=== PATIENT | female | born 1945 | race African-American/Black ===

== ENCOUNTER 2018-04-25 09:12 | Inpatient (IN) ==
[2018-04-25 10:17] LABS: Basophils % 0.6 % (0.0-0.8); Eosinophils # 0.1 10*3/uL (0.0-0.87); Eosinophils % 1.6 % (0.00-10.9); Hematocrit 42.4 VOL% (35.7-47.0); Hemoglobin 13.3 GM/DL (12.0-16.0); Immature Granulocytes % 0.5 %; Immature Granulocytes Absolute 0.03 #; Lymphocytes # 1.3 10*3/uL (1.4-4.0); Mean Corpuscular HGB Conc 31.4 GM/DL (32-36); Mean Corpuscular Hemoglobin 30 PG (27-34); Mean Corpuscular Volume 95.3 FL (87-102); Mean Platelet Volume 10.7 FL (9.6-12.0); Monocytes # 0.7 10*3/uL (0.11-0.8); Monocytes % 10.5 % (1.7-12.7); Neutrophils # 4.3 10*3/uL (1.4-7.4); Neutrophils % 66.8 % (38.7-73.9); Platelet Count 157 T/CUMM (130-400); Red Blood Count 4.45 MC/CUMM (3.8-5.5); Red Cell Distribution Width 17.6 % (9.3-17.3); White Blood Count 6.5 T/CUMM (4-12)
[2018-04-25 10:39] LABS: Albumin 3.7 G/DL (3.4-5.0); Bilirubin,Total 2.5 MG/DL (0.2-1.0); Calcium 9.4 MG/DL (8.5-10.1); Osmolality,Calculated 281.7 MOS/KG (273-304); Potassium 4.9 MMOL/L (3.5-5.1); Total Protein 9.4 G/DL (6.4-8.3)
[2018-04-25] MEDS ORDERED: FUROSEMIDE 40 MG/4 ML VIAL IV STA (11:45)
[2018-04-25 12:03] LABS: ABG Base Excess -1.4 MMOL/L (-2.5-2.5); ABG Oxygen Saturation 95.7 % (95-100); ABG PCO2 42.6 MM HG (35-48); ABG PH 7.368 (7.35-7.45); ABG PO2 82.1 MM HG (80-95); ABG TCO2 25.3 MMOL/L (23-27)
[2018-04-25 13:31] LABS: Apearance,Urine Slightly Hazy (Clear); Bilirubin,Urine Negative (Negative); Blood, Urine Negative (Negative); Glucose,Urine (UA) Negative (Negative); Hyaline Casts,Urine 9 /LPF (0-3); Ketones,Urine Negative (Negative); Mucus,Urine Occasional /LPF (Occasional); Nitrite,Urine Negative (Negative); Protein,Urine 30 MG/DL; RBC,Urine 7 /HPF (0-4); Squamous Epithelial Cell,Urine Occasional /HPF (0-10); Urine Color Amber (Yellow); Urine Specific Gravity 1.018 (1.001-1.035); WBC,Urine <1 /HPF (0-6)
[2018-04-25] MEDS ORDERED: ONDANSETRON 4 MG/2 ML VIAL IV PRN (14:34)
[2018-04-25] MEDS ORDERED: DEXTROSE 50% 25 GM/50 ML VIAL IV PRN (14:34)
[2018-04-25] MEDS ORDERED: DOCUSATE SODIUM 100 MG CAPSULE PO PRN (14:34)
[2018-04-25] MEDS ORDERED: ACETAMINOPHEN 325 MG TABLET PO PRN (14:34)
[2018-04-25] MEDS ORDERED: GLUCAGON 1 MG VIAL IM PRN (14:34)
[2018-04-25] MEDS ORDERED: LACTULOSE 20 GM/30 ML UDCUP PO PRN (14:34)
[2018-04-25] MEDS: FUROSEMIDE 40 MG/4 ML VIAL IV SCH (15:21)
[2018-04-25] MEDS: ENOXAPARIN 40 MG/0.4 ML SYRINGE SUBCUT SCH (15:29)
[2018-04-25] MEDS: INSULIN LISPRO 100 UNIT/ML SUBCUT SCH ×2 (15:50→22:10)
[2018-04-25] MEDS: THEOPHYLLINE ER 300 MG TABLET PO SCH (21:02)
[2018-04-25] MEDS: OXYBUTYNIN 5 MG TABLET PO SCH (21:04)
[2018-04-25] MEDS: METOPROLOL TARTRATE 25 MG TABLET PO SCH (21:04)
[2018-04-26 05:33] LABS: Basophils % 0.7 % (0.0-0.8); Eosinophils # 0.1 10*3/uL (0.0-0.87); Eosinophils % 2.4 % (0.00-10.9); Hematocrit 39.8 VOL% (35.7-47.0); Hemoglobin 12.8 GM/DL (12.0-16.0); Immature Granulocytes % 0.7 %; Immature Granulocytes Absolute 0.04 #; Lymphocytes # 1.3 10*3/uL (1.4-4.0); Lymphocytes % 23.9 % (21.3-54.2); Mean Corpuscular HGB Conc 32.2 GM/DL (32-36); Mean Corpuscular Hemoglobin 30 PG (27-34); Mean Corpuscular Volume 93.6 FL (87-102); Mean Platelet Volume 11.1 FL (9.6-12.0); Monocytes # 0.8 10*3/uL (0.11-0.8); Monocytes % 13.7 % (1.7-12.7); NRBC # 0.03 10*3/uL; Neutrophils # 3.2 10*3/uL (1.4-7.4); Neutrophils % 58.6 % (38.7-73.9); Platelet Count 153 T/CUMM (130-400); Red Blood Count 4.25 MC/CUMM (3.8-5.5); Red Cell Distribution Width 17.4 % (9.3-17.3); White Blood Count 5.5 T/CUMM (4-12)
[2018-04-26 05:54] LABS: Calcium 9.1 MG/DL (8.5-10.1); Osmolality,Calculated 281.5 MOS/KG (273-304); Potassium 4.8 MMOL/L (3.5-5.1); Risk Ratio 2.1; Thyroid Stimulating Hormone 7.82 uIU/ml (0.358-3.74); VLDL CHOLESTEROL 12.6 MG/DL
[2018-04-26] MEDS: LEVOTHYROXINE 125 MCG TABLET PO SCH (06:35)
[2018-04-26] MEDS: INSULIN LISPRO 100 UNIT/ML SUBCUT SCH ×4 (08:44→21:27)
[2018-04-26] MEDS: THEOPHYLLINE ER 300 MG TABLET PO SCH ×2 (09:41→21:24)
[2018-04-26] MEDS: FUROSEMIDE 40 MG/4 ML VIAL IV SCH ×2 (09:41→15:16)
[2018-04-26] MEDS: PANTOPRAZOLE 40 MG TABLET PO SCH (09:41)
[2018-04-26] MEDS: METOPROLOL TARTRATE 25 MG TABLET PO SCH ×2 (09:42→21:24)
[2018-04-26] MEDS: GABAPENTIN 100 MG CAPSULE PO SCH (09:42)
[2018-04-26] MEDS: OXYBUTYNIN 5 MG TABLET PO SCH ×2 (09:42→21:27)
[2018-04-26] MEDS: POTASSIUM CHLORIDE 20 MEQ TABLET PO SCH (09:42)
[2018-04-26] MEDS: guaiFENesin/CODEINE 5 ML LIQUID PO PRN (11:27)
[2018-04-26] MEDS: ENOXAPARIN 40 MG/0.4 ML SYRINGE SUBCUT SCH (15:16)
[2018-04-26] MEDS ORDERED: FUROSEMIDE 40 MG/4 ML VIAL IV SCH (16:38)
[2018-04-26] MEDS ORDERED: FUROSEMIDE 40 MG/4 ML VIAL IV ONE (17:00)
[2018-04-27 05:21] LABS: Basophils # 0.1 10*3/uL (0.0-0.2); Basophils % 0.8 % (0.0-0.8); Eosinophils # 0.2 10*3/uL (0.0-0.87); Eosinophils % 2.7 % (0.00-10.9); Hematocrit 37.2 VOL% (35.7-47.0); Immature Granulocytes % 0.7 %; Immature Granulocytes Absolute 0.04 #; Lymphocytes # 1.3 10*3/uL (1.4-4.0); Lymphocytes % 22.4 % (21.3-54.2); Mean Corpuscular HGB Conc 32.3 GM/DL (32-36); Mean Corpuscular Hemoglobin 30 PG (27-34); Mean Corpuscular Volume 92.3 FL (87-102); Mean Platelet Volume 11.1 FL (9.6-12.0); Monocytes # 0.9 10*3/uL (0.11-0.8); Monocytes % 14.8 % (1.7-12.7); NRBC # 0.02 10*3/uL; Neutrophils # 3.5 10*3/uL (1.4-7.4); Neutrophils % 58.6 % (38.7-73.9); Platelet Count 157 T/CUMM (130-400); Red Blood Count 4.03 MC/CUMM (3.8-5.5); Red Cell Distribution Width 17.1 % (9.3-17.3); White Blood Count 5.9 T/CUMM (4-12)
[2018-04-27 05:37] LABS: Osmolality,Calculated 284.4 MOS/KG (273-304); Potassium 4.7 MMOL/L (3.5-5.1)
[2018-04-27] MEDS: LEVOTHYROXINE 125 MCG TABLET PO SCH (05:53)
[2018-04-27] MEDS ORDERED: FUROSEMIDE 100 MG/10 ML VIAL ONE (08:10)
[2018-04-27] MEDS: INSULIN LISPRO 100 UNIT/ML SUBCUT SCH ×4 (09:12→20:29)
[2018-04-27] MEDS: GABAPENTIN 100 MG CAPSULE PO SCH (09:13)
[2018-04-27] MEDS: THEOPHYLLINE ER 300 MG TABLET PO SCH ×2 (09:13→20:29)
[2018-04-27] MEDS: FUROSEMIDE 40 MG/4 ML VIAL IV SCH ×2 (09:13→15:32)
[2018-04-27] MEDS: OXYBUTYNIN 5 MG TABLET PO SCH ×2 (09:13→20:29)
[2018-04-27] MEDS: METOPROLOL TARTRATE 25 MG TABLET PO SCH ×2 (09:13→20:29)
[2018-04-27] MEDS: POTASSIUM CHLORIDE 20 MEQ TABLET PO SCH (09:14)
[2018-04-27] MEDS: PANTOPRAZOLE 40 MG TABLET PO SCH (09:14)
[2018-04-27] MEDS: guaiFENesin/CODEINE 5 ML LIQUID PO PRN (12:55)
[2018-04-27] MEDS: ENOXAPARIN 40 MG/0.4 ML SYRINGE SUBCUT SCH (15:32)
[2018-04-28] MEDS: LEVOTHYROXINE 150 MCG TABLET PO SCH (06:16)
[2018-04-28] MEDS ORDERED: GLUCAGON 1 MG VIAL IM PRN (07:54)
[2018-04-28] MEDS ORDERED: DEXTROSE 50% 25 GM/50 ML VIAL IV PRN (07:54)
[2018-04-28] MEDS: OXYBUTYNIN 5 MG TABLET PO SCH ×2 (09:24→21:38)
[2018-04-28] MEDS: FUROSEMIDE 40 MG/4 ML VIAL IV SCH ×2 (09:24→18:22)
[2018-04-28] MEDS: POTASSIUM CHLORIDE 20 MEQ TABLET PO SCH (09:25)
[2018-04-28] MEDS: METOPROLOL TARTRATE 25 MG TABLET PO SCH ×2 (09:25→21:38)
[2018-04-28] MEDS: THEOPHYLLINE ER 300 MG TABLET PO SCH ×2 (09:25→21:37)
[2018-04-28] MEDS: GABAPENTIN 100 MG CAPSULE PO SCH ×2 (09:25→21:38)
[2018-04-28] MEDS: PANTOPRAZOLE 40 MG TABLET PO SCH (09:25)
[2018-04-28] MEDS: INSULIN LISPRO 100 UNIT/ML SUBCUT SCH ×4 (10:21→21:39)
[2018-04-28] MEDS: CEFUROXIME 500 MG TABLET PO SCH ×2 (12:54→21:37)
[2018-04-28] MEDS: ALBUTEROL 2.5 MG/3 ML NEB RESP TX SCH ×2 (14:06→20:27)
[2018-04-28] MEDS: ENOXAPARIN 40 MG/0.4 ML SYRINGE SUBCUT SCH (18:29)
[2018-04-29] MEDS: ALBUTEROL 2.5 MG/3 ML NEB RESP TX SCH ×4 (00:39→20:15)
[2018-04-29] MEDS: LEVOTHYROXINE 150 MCG TABLET PO SCH (06:17)
[2018-04-29] MEDS: INSULIN LISPRO 100 UNIT/ML SUBCUT SCH ×4 (08:46→22:07)
[2018-04-29 09:06] LABS: Calcium 9.3 MG/DL (8.5-10.1); Osmolality,Calculated 279.7 MOS/KG (273-304); Potassium 4.3 MMOL/L (3.5-5.1)
[2018-04-29] MEDS: CEFUROXIME 500 MG TABLET PO SCH ×2 (09:06→22:04)
[2018-04-29] MEDS: FUROSEMIDE 40 MG/4 ML VIAL IV SCH ×2 (09:06→16:19)
[2018-04-29] MEDS: THEOPHYLLINE ER 300 MG TABLET PO SCH ×2 (09:07→22:04)
[2018-04-29] MEDS: PANTOPRAZOLE 40 MG TABLET PO SCH (09:07)
[2018-04-29] MEDS: GABAPENTIN 100 MG CAPSULE PO SCH ×2 (09:07→22:03)
[2018-04-29] MEDS: METOPROLOL TARTRATE 25 MG TABLET PO SCH ×2 (09:07→22:05)
[2018-04-29] MEDS: OXYBUTYNIN 5 MG TABLET PO SCH ×2 (09:07→22:05)
[2018-04-29] MEDS: POTASSIUM CHLORIDE 20 MEQ TABLET PO SCH (09:07)
[2018-04-29] MEDS: ENOXAPARIN 40 MG/0.4 ML SYRINGE SUBCUT SCH (16:18)
[2018-04-30] MEDS: ALBUTEROL 2.5 MG/3 ML NEB RESP TX SCH ×3 (00:43→13:21)
[2018-04-30 05:05] LABS: Calcium 9.1 MG/DL (8.5-10.1); Osmolality,Calculated 279.7 MOS/KG (273-304); Potassium 3.9 MMOL/L (3.5-5.1)
[2018-04-30] MEDS: LEVOTHYROXINE 150 MCG TABLET PO SCH (07:31)
[2018-04-30] MEDS: INSULIN LISPRO 100 UNIT/ML SUBCUT SCH ×2 (08:59→12:43)
[2018-04-30] MEDS: THEOPHYLLINE ER 300 MG TABLET PO SCH (10:21)
[2018-04-30] MEDS: CEFUROXIME 500 MG TABLET PO SCH (10:21)
[2018-04-30] MEDS: METOPROLOL TARTRATE 25 MG TABLET PO SCH (10:23)
[2018-04-30] MEDS: GABAPENTIN 100 MG CAPSULE PO SCH (10:24)
[2018-04-30] MEDS: PANTOPRAZOLE 40 MG TABLET PO SCH (10:24)
[2018-04-30] MEDS: POTASSIUM CHLORIDE 20 MEQ TABLET PO SCH (10:24)
[2018-04-30] MEDS: OXYBUTYNIN 5 MG TABLET PO SCH (10:25)
[2018-04-30] MEDS: FUROSEMIDE 40 MG/4 ML VIAL IV SCH (10:26)
[2018-04-30 14:16] VITALS: BP 119/80
== END 2018-04-30 15:00 | disposition home or self-care (01) | DRG 205 ==
LOC: N.ED 09:12 → N.EDINP 09:12 → N.5E 13:33 → SUATTDRO 04-26 16:33
PROVIDERS: ADMIT Internal Medicine; ATTEND Hospitalist

== ENCOUNTER 2018-08-08 14:24 | Observation (INO) ==
[2018-08-08] MEDS ORDERED: ALBUTEROL/IPRATROPIUM 3 ML NEB RESP TX STA (14:52)
[2018-08-08] MEDS ORDERED: NITROGLYCERIN 2% OINT 1 INCH/GM PACK TOP STA (14:52)
[2018-08-08] MEDS ORDERED: FUROSEMIDE 40 MG/4 ML VIAL IV STA (15:17)
[2018-08-08 15:46] LABS: Basophils % 0.3 % (0.0-0.8); Eosinophils # 0.1 10*3/uL (0.0-0.87); Eosinophils % 0.7 % (0.00-10.9); Hematocrit 40.3 VOL% (35.7-47.0); Immature Granulocytes % 0.5 %; Immature Granulocytes Absolute 0.05 #; Lymphocytes # 1.3 10*3/uL (1.4-4.0); Mean Corpuscular HGB Conc 32.3 GM/DL (32-36); Mean Corpuscular Hemoglobin 31 PG (27-34); Mean Corpuscular Volume 95.5 FL (87-102); Mean Platelet Volume 11.4 FL (9.6-12.0); Monocytes # 1.1 10*3/uL (0.11-0.8); Monocytes % 10.6 % (1.7-12.7); NRBC # 0.02 10*3/uL; Neutrophils # 7.6 10*3/uL (1.4-7.4); Neutrophils % 74.9 % (38.7-73.9); Platelet Count 163 T/CUMM (130-400); Red Blood Count 4.22 MC/CUMM (3.8-5.5); Red Cell Distribution Width 18.1 % (9.3-17.3); White Blood Count 10.1 T/CUMM (4-12)
[2018-08-08 15:53] LABS: INR 1.2; PT Patient Result 13.4 SECS
[2018-08-08 16:21] LABS: Albumin 3.5 G/DL (3.4-5.0); Bilirubin,Total 3.4 MG/DL (0.2-1.0); Calcium 8.8 MG/DL (8.5-10.1); Osmolality,Calculated 278.8 MOS/KG (273-304); Potassium 4.8 MMOL/L (3.5-5.1); Total Protein 9.1 G/DL (6.4-8.3)
[2018-08-08] MEDS: ALBUTEROL 2.5 MG/3 ML NEB RESP TX SCH ×2 (16:57→16:58)
[2018-08-08] MEDS ORDERED: GLUCAGON 1 MG VIAL IM PRN (17:04)
[2018-08-08] MEDS ORDERED: ONDANSETRON 4 MG/2 ML VIAL IV PRN (17:04)
[2018-08-08] MEDS ORDERED: DEXTROSE 50% 25 GM/50 ML SYRINGE IV PRN (17:04)
[2018-08-08] MEDS ORDERED: FLUTICASONE 50 MCG NASAL SPRAY 16 GM BOTTLE BOTH NARES PRN (17:07)
[2018-08-08] MEDS ORDERED: ALBUTEROL/IPRATROPIUM 3 ML NEB RESP TX PRN (17:22)
[2018-08-08] MEDS: ALBUTEROL/IPRATROPIUM 3 ML NEB RESP TX SCH (20:02)
[2018-08-08] MEDS: THEOPHYLLINE ER 300 MG TABLET PO SCH (22:27)
[2018-08-08] MEDS: BENZONATATE 100 MG CAPSULE PO SCH (22:27)
[2018-08-08] MEDS: OXYBUTYNIN 5 MG TABLET PO SCH (22:28)
[2018-08-08] MEDS: glyBURIDE/METFORMIN 5-500 MG TABLET PO SCH (22:28)
[2018-08-08] MEDS: INSULIN REGULAR 100 UNIT/ML SUBCUT SCH (22:28)
[2018-08-08] MEDS: ENOXAPARIN 40 MG/0.4 ML SYRINGE SUBCUT SCH (22:29)
[2018-08-08] MEDS: FUROSEMIDE 40 MG/4 ML VIAL IV SCH (22:29)
[2018-08-08] MEDS: METOPROLOL TARTRATE 25 MG TABLET PO SCH (22:31)
[2018-08-09] MEDS: ALBUTEROL/IPRATROPIUM 3 ML NEB RESP TX SCH ×4 (00:21→19:34)
[2018-08-09] MEDS: FUROSEMIDE 40 MG/4 ML VIAL IV SCH ×4 (02:59→20:55)
[2018-08-09 05:25] LABS: Basophils % 0.3 % (0.0-0.8); Eosinophils # 0.1 10*3/uL (0.0-0.87); Eosinophils % 0.7 % (0.00-10.9); Hematocrit 36.4 VOL% (35.7-47.0); Hemoglobin 11.7 GM/DL (12.0-16.0); Immature Granulocytes % 0.7 %; Immature Granulocytes Absolute 0.07 #; Lymphocytes # 1.2 10*3/uL (1.4-4.0); Lymphocytes % 12.1 % (21.3-54.2); Mean Corpuscular HGB Conc 32.1 GM/DL (32-36); Mean Corpuscular Hemoglobin 30 PG (27-34); Mean Corpuscular Volume 94.5 FL (87-102); Mean Platelet Volume 10.9 FL (9.6-12.0); Monocytes # 1.4 10*3/uL (0.11-0.8); Monocytes % 14.1 % (1.7-12.7); Neutrophils # 7.2 10*3/uL (1.4-7.4); Neutrophils % 72.1 % (38.7-73.9); Platelet Count 145 T/CUMM (130-400); Red Blood Count 3.85 MC/CUMM (3.8-5.5); Red Cell Distribution Width 17.7 % (9.3-17.3); White Blood Count 9.9 T/CUMM (4-12)
[2018-08-09 05:45] LABS: Calcium 8.7 MG/DL (8.5-10.1); Osmolality,Calculated 277.7 MOS/KG (273-304); Potassium 4.2 MMOL/L (3.5-5.1); Thyroid Stimulating Hormone 6.4 uIU/ml (0.358-3.74)
[2018-08-09] MEDS ORDERED: LEVOTHYROXINE 150 MCG TABLET PO SCH (06:30)
[2018-08-09] MEDS: glyBURIDE/METFORMIN 5-500 MG TABLET PO SCH ×2 (09:34→21:04)
[2018-08-09] MEDS: THEOPHYLLINE ER 300 MG TABLET PO SCH ×2 (09:34→20:55)
[2018-08-09] MEDS: PANTOPRAZOLE 40 MG TABLET PO SCH (09:35)
[2018-08-09] MEDS: BENZONATATE 100 MG CAPSULE PO SCH ×2 (09:35→14:42)
[2018-08-09] MEDS: GABAPENTIN 100 MG CAPSULE PO SCH (09:35)
[2018-08-09] MEDS: OXYBUTYNIN 5 MG TABLET PO SCH ×2 (09:35→20:55)
[2018-08-09] MEDS: SPIRONOLACTONE 50 MG TABLET PO SCH (09:35)
[2018-08-09] MEDS: METOPROLOL TARTRATE 25 MG TABLET PO SCH ×2 (09:35→20:55)
[2018-08-09] MEDS: ALLOPURINOL 100 MG TABLET PO SCH (09:35)
[2018-08-09] MEDS: ASPIRIN EC 81 MG TABLET PO SCH (09:35)
[2018-08-09] MEDS: INSULIN REGULAR 100 UNIT/ML SUBCUT SCH ×4 (09:36→21:04)
[2018-08-09] MEDS ORDERED: ACETAMINOPHEN 325 MG TABLET PO PRN (14:12)
[2018-08-09] MEDS ORDERED: LEVOTHYROXINE 175 MCG TABLET PO SCH (18:52)
[2018-08-09] MEDS ORDERED: BENZONATATE 100 MG CAPSULE PO PRN (18:55)
[2018-08-09] MEDS: ENOXAPARIN 40 MG/0.4 ML SYRINGE SUBCUT SCH (20:54)
[2018-08-10] MEDS: ALBUTEROL/IPRATROPIUM 3 ML NEB RESP TX SCH ×4 (00:15→19:47)
[2018-08-10] MEDS: FUROSEMIDE 40 MG/4 ML VIAL IV SCH ×4 (03:26→20:44)
[2018-08-10] MEDS: LEVOTHYROXINE 175 MCG TABLET PO SCH (06:56)
[2018-08-10] MEDS: INSULIN REGULAR 100 UNIT/ML SUBCUT SCH ×4 (08:21→20:49)
[2018-08-10] MEDS: SPIRONOLACTONE 50 MG TABLET PO SCH (09:02)
[2018-08-10] MEDS: THEOPHYLLINE ER 300 MG TABLET PO SCH ×2 (09:02→20:44)
[2018-08-10] MEDS: ALLOPURINOL 100 MG TABLET PO SCH (09:02)
[2018-08-10] MEDS: PANTOPRAZOLE 40 MG TABLET PO SCH (09:02)
[2018-08-10] MEDS: GABAPENTIN 100 MG CAPSULE PO SCH (09:02)
[2018-08-10] MEDS: METOPROLOL TARTRATE 25 MG TABLET PO SCH (09:02)
[2018-08-10] MEDS: OXYBUTYNIN 5 MG TABLET PO SCH ×2 (09:03→20:44)
[2018-08-10] MEDS: glyBURIDE/METFORMIN 5-500 MG TABLET PO SCH ×2 (09:03→20:48)
[2018-08-10] MEDS: ASPIRIN EC 81 MG TABLET PO SCH (09:03)
[2018-08-10] MEDS: BENZOCAINE/MENTHOL LOZENGE 18/BOX PO PRN (16:45)
[2018-08-10] MEDS: METOPROLOL TARTRATE 50 MG TABLET PO SCH (20:44)
[2018-08-10] MEDS: ENOXAPARIN 40 MG/0.4 ML SYRINGE SUBCUT SCH (20:51)
[2018-08-10] MEDS: CLOTRIMAZOLE 1% CREAM 15 GM TUBE TOP SCH (20:55)
[2018-08-11] MEDS: ALBUTEROL/IPRATROPIUM 3 ML NEB RESP TX SCH ×2 (00:25→07:24)
[2018-08-11] MEDS: FUROSEMIDE 40 MG/4 ML VIAL IV SCH ×2 (03:09→09:52)
[2018-08-11] MEDS: BENZOCAINE/MENTHOL LOZENGE 18/BOX PO PRN (04:31)
[2018-08-11 06:12] LABS: Calcium 8.5 MG/DL (8.5-10.1); Osmolality,Calculated 274.8 MOS/KG (273-304); Potassium 3.7 MMOL/L (3.5-5.1)
[2018-08-11] MEDS: LEVOTHYROXINE 175 MCG TABLET PO SCH (06:12)
[2018-08-11] MEDS: SPIRONOLACTONE 50 MG TABLET PO SCH (09:50)
[2018-08-11] MEDS: THEOPHYLLINE ER 300 MG TABLET PO SCH (09:50)
[2018-08-11] MEDS: GABAPENTIN 100 MG CAPSULE PO SCH (09:51)
[2018-08-11] MEDS: OXYBUTYNIN 5 MG TABLET PO SCH (09:51)
[2018-08-11] MEDS: CLOTRIMAZOLE 1% CREAM 15 GM TUBE TOP SCH (09:51)
[2018-08-11] MEDS: METOPROLOL TARTRATE 50 MG TABLET PO SCH (09:51)
[2018-08-11] MEDS: PANTOPRAZOLE 40 MG TABLET PO SCH (09:51)
[2018-08-11] MEDS: ASPIRIN EC 81 MG TABLET PO SCH (09:51)
[2018-08-11] MEDS: ALLOPURINOL 100 MG TABLET PO SCH (09:51)
[2018-08-11] MEDS: INSULIN REGULAR 100 UNIT/ML SUBCUT SCH ×2 (09:59→12:10)
[2018-08-11] MEDS: glyBURIDE/METFORMIN 5-500 MG TABLET PO SCH (10:00)
[2018-08-11 13:30] VITALS: BP 133/94
== END 2018-08-11 12:40 | disposition home or self-care (01) ==
LOC: N.ED 14:24 → N.EDINP 14:24 → N.4E 19:25
PROVIDERS: ADMIT Internal Medicine; ATTEND Internal Medicine

== ENCOUNTER 2018-09-07 23:28 | Inpatient (IN) ==
[2018-09-08] MEDS ORDERED: ALBUTEROL/IPRATROPIUM 3 ML NEB RESP TX STA (00:35)
[2018-09-08] MEDS ORDERED: FUROSEMIDE 40 MG/4 ML VIAL IV STA (01:09)
[2018-09-08 01:10] LABS: Allen Test Positive
[2018-09-08] MEDS ORDERED: DILTIAZEM 50 MG/10 ML VIAL IV STA (01:10)
[2018-09-08 01:11] LABS: ABG Base Excess -1.6 MMOL/L (-2.5-2.5); ABG Oxygen Saturation 93.9 % (95-100); ABG PCO2 37.8 MM HG (35-48); ABG PH 7.391 (7.35-7.45); ABG PO2 69.6 MM HG (80-95); ABG TCO2 19.8 MMOL/L (23-27)
[2018-09-08] MEDS ORDERED: dilTIAZem Drip 125 MG/125 ML PREMIX IV SCH (01:30)
[2018-09-08 01:36] LABS: Basophils % 0.5 % (0.0-0.8); Eosinophils # 0.1 10*3/uL (0.0-0.87); Eosinophils % 1.2 % (0.00-10.9); Hematocrit 43.5 VOL% (35.7-47.0); Hemoglobin 13.9 GM/DL (12.0-16.0); Immature Granulocytes % 0.7 %; Immature Granulocytes Absolute 0.05 #; Lymphocytes # 1.3 10*3/uL (1.4-4.0); Lymphocytes % 17.4 % (21.3-54.2); Mean Corpuscular Volume 97.1 FL (87-102); Monocytes % 11.8 % (1.7-12.7); NRBC # 0.02 10*3/uL; Neutrophils % 68.4 % (38.7-73.9); Platelet Count 180 T/CUMM (130-400); Red Blood Count 4.48 MC/CUMM (3.8-5.5); Red Cell Distribution Width 17.8 % (9.3-17.3); White Blood Count 7.7 T/CUMM (4-12)
[2018-09-08 03:04] LABS: Apearance,Urine CLEAR (Clear); Bacteria,Urine Occasional /HPF (Few); Bilirubin,Urine Negative (Negative); Blood, Urine Negative (Negative); Glucose,Urine (UA) Negative (Negative); Hyaline Casts,Urine 21 /LPF (0-3); Ketones,Urine 5 mg/dL (Negative); Mucus,Urine Occasional /LPF (Occasional); Nitrite,Urine Negative (Negative); Protein,Urine 30 MG/DL; RBC,Urine 1 /HPF (0-4); Squamous Epithelial Cell,Urine Occasional /HPF (0-10); Urine Color Amber (Yellow); WBC,Urine 1 /HPF (0-6)
[2018-09-08 04:18] LABS: Albumin 3.4 G/DL (3.4-5.0); Total Protein 8.3 G/DL (6.4-8.3)
[2018-09-08 04:19] LABS: Osmolality,Calculated 275.4 MOS/KG (273-304)
[2018-09-08] MEDS ORDERED: SODIUM POLYSTYRENE SULFATE 15 GM/60 ML BOTTLE PO STA (04:23)
[2018-09-08] MEDS ORDERED: DEXTROSE 50% 25 GM/50 ML VIAL IV STA (05:55)
[2018-09-08] MEDS ORDERED: INSULIN REGULAR 100 UNIT/ML IV STA (05:56)
[2018-09-08] MEDS ORDERED: DEXTROSE 50% 25 GM/50 ML SYRINGE IV ONE (05:59)
[2018-09-08] MEDS ORDERED: ACETAMINOPHEN 325 MG TABLET PO PRN (07:45)
[2018-09-08] MEDS ORDERED: ONDANSETRON 4 MG/2 ML VIAL IV PRN (07:45)
[2018-09-08] MEDS ORDERED: PROMETHAZINE 25 MG/1 ML VIAL IM PRN (07:45)
[2018-09-08] MEDS ORDERED: ALBUTEROL 2.5 MG/3 ML NEB RESP TX PRN ×2 (07:45→07:50)
[2018-09-08] MEDS ORDERED: FLUTICASONE 50 MCG NASAL SPRAY 16 GM BOTTLE BOTH NARES PRN (07:50)
[2018-09-08] MEDS ORDERED: FUROSEMIDE 40 MG TABLET PO SCH (08:00)
[2018-09-08 08:16] LABS: Risk Ratio 2.28; Thyroid Stimulating Hormone 8.19 uIU/ml (0.358-3.74); VLDL CHOLESTEROL 15.8 MG/DL
[2018-09-08] MEDS ORDERED: ENOXAPARIN 30 MG/0.3 ML SYRINGE SUBCUT SCH (09:00)
[2018-09-08 10:05] LABS: Free T4 (Free Thyroxine) 0.98 NG/DL (0.76-1.46)
[2018-09-08] MEDS ORDERED: FUROSEMIDE 40 MG/4 ML VIAL IV ONE (11:27)
[2018-09-08] MEDS: MONTELUKAST 10 MG TABLET PO SCH (12:47)
[2018-09-08] MEDS: APIXABAN 5 MG TABLET PO SCH ×2 (12:47→21:59)
[2018-09-08] MEDS: PANTOPRAZOLE 40 MG TABLET PO SCH ×2 (12:47→12:59)
[2018-09-08] MEDS: METOPROLOL TARTRATE 50 MG TABLET PO SCH ×2 (12:47→21:58)
[2018-09-08] MEDS: metOLazone 5 MG TABLET PO SCH (12:47)
[2018-09-08] MEDS: ASPIRIN EC 81 MG TABLET PO SCH (12:47)
[2018-09-08] MEDS: ALLOPURINOL 100 MG TABLET PO SCH (12:48)
[2018-09-08] MEDS: GABAPENTIN 100 MG CAPSULE PO SCH (12:48)
[2018-09-08] MEDS: methylPREDNISolone SOD SUC 40 MG/1 ML VIAL IV SCH (12:49)
[2018-09-08] MEDS: OXYBUTYNIN 5 MG TABLET PO SCH ×2 (12:51→21:58)
[2018-09-08 13:07] LABS: Calcium 9.4 MG/DL (8.5-10.1); Osmolality,Calculated 274.2 MOS/KG (273-304)
[2018-09-08] MEDS: DILTIAZEM 30 MG TABLET PO SCH ×2 (16:40→21:58)
[2018-09-08] MEDS: BUDESONIDE/FORMOTEROL 160-4.5 INHALER 6 GM INH SCH ×2 (17:22→21:58)
[2018-09-08] MEDS: CLOTRIMAZOLE 1% CREAM 15 GM TUBE TOP SCH ×2 (17:22→21:58)
[2018-09-08] MEDS: ALBUTEROL/IPRATROPIUM 3 ML NEB RESP TX SCH ×2 (17:23→19:03)
[2018-09-08] MEDS: FUROSEMIDE 40 MG/4 ML VIAL IV SCH (17:23)
[2018-09-08] MEDS: INSULIN REGULAR 100 UNIT/ML SUBCUT SCH (21:59)
[2018-09-09] MEDS: ALBUTEROL/IPRATROPIUM 3 ML NEB RESP TX SCH ×4 (01:05→19:04)
[2018-09-09] MEDS: methylPREDNISolone SOD SUC 40 MG/1 ML VIAL IV SCH ×2 (01:20→12:20)
[2018-09-09 06:10] LABS: Basophils % 0.2 % (0.0-0.8); Hematocrit 42.9 VOL% (35.7-47.0); Hemoglobin 13.7 GM/DL (12.0-16.0); Immature Granulocytes % 0.6 %; Immature Granulocytes Absolute 0.03 #; Lymphocytes # 0.7 10*3/uL (1.4-4.0); Lymphocytes % 12.9 % (21.3-54.2); Mean Corpuscular HGB Conc 31.9 GM/DL (32-36); Mean Corpuscular Volume 97.5 FL (87-102); Mean Platelet Volume 11.7 FL (9.6-12.0); Monocytes % 5.4 % (1.7-12.7); NRBC # 0.03 10*3/uL; Neutrophils % 80.9 % (38.7-73.9); Platelet Count 161 T/CUMM (130-400); Red Cell Distribution Width 17.4 % (9.3-17.3); White Blood Count 5.2 T/CUMM (4-12)
[2018-09-09] MEDS: LEVOTHYROXINE 175 MCG TABLET PO SCH (06:19)
[2018-09-09 06:55] LABS: Albumin 3.1 G/DL (3.4-5.0); Bilirubin,Total 2.8 MG/DL (0.2-1.0); Calcium 8.6 MG/DL (8.5-10.1); Osmolality,Calculated 280.2 MOS/KG (273-304); Total Protein 8.1 G/DL (6.4-8.3)
[2018-09-09] MEDS ORDERED: SODIUM POLYSTYRENE SULFATE 15 GM/60 ML BOTTLE PO ONE ×2 (07:05→14:00)
[2018-09-09] MEDS: INSULIN REGULAR 100 UNIT/ML SUBCUT SCH ×4 (07:53→21:52)
[2018-09-09] MEDS: BUDESONIDE/FORMOTEROL 160-4.5 INHALER 6 GM INH SCH ×2 (08:55→21:53)
[2018-09-09] MEDS: FUROSEMIDE 40 MG/4 ML VIAL IV SCH ×2 (08:55→16:32)
[2018-09-09] MEDS: MONTELUKAST 10 MG TABLET PO SCH (08:56)
[2018-09-09] MEDS: GABAPENTIN 100 MG CAPSULE PO SCH (08:56)
[2018-09-09] MEDS: PANTOPRAZOLE 40 MG TABLET PO SCH ×2 (08:56→08:58)
[2018-09-09] MEDS: OXYBUTYNIN 5 MG TABLET PO SCH ×2 (08:56→21:51)
[2018-09-09] MEDS: metOLazone 5 MG TABLET PO SCH (08:56)
[2018-09-09] MEDS: METOPROLOL TARTRATE 50 MG TABLET PO SCH ×2 (08:57→21:51)
[2018-09-09] MEDS: ASPIRIN EC 81 MG TABLET PO SCH (08:57)
[2018-09-09] MEDS: ALLOPURINOL 100 MG TABLET PO SCH (08:57)
[2018-09-09] MEDS: APIXABAN 5 MG TABLET PO SCH ×2 (08:57→21:51)
[2018-09-09] MEDS ORDERED: CALCIUM GLUCONATE 1,000 MG in SODIUM CHLORIDE 0.9% 100 ML IV ONE (10:00)
[2018-09-09] MEDS: DILTIAZEM 30 MG TABLET PO SCH (10:25)
[2018-09-09] MEDS: CLOTRIMAZOLE 1% CREAM 15 GM TUBE TOP SCH ×2 (10:26→21:52)
[2018-09-09] MEDS ORDERED: SKIN HEALING OINT (AQUAPHOR) 50 GM TUBE TOP PRN (11:12)
[2018-09-09 16:01] LABS: Calcium 8.6 MG/DL (8.5-10.1); Osmolality,Calculated 278.5 MOS/KG (273-304)
[2018-09-10] MEDS: ALBUTEROL/IPRATROPIUM 3 ML NEB RESP TX SCH ×3 (01:20→19:10)
[2018-09-10] MEDS: methylPREDNISolone SOD SUC 40 MG/1 ML VIAL IV SCH (01:28)
[2018-09-10 04:44] LABS: Basophils % 0.1 % (0.0-0.8); Hematocrit 40.2 VOL% (35.7-47.0); Hemoglobin 12.7 GM/DL (12.0-16.0); Immature Granulocytes % 0.5 %; Immature Granulocytes Absolute 0.04 #; Lymphocytes # 0.5 10*3/uL (1.4-4.0); Lymphocytes % 5.5 % (21.3-54.2); Mean Corpuscular HGB Conc 31.6 GM/DL (32-36); Mean Platelet Volume 10.8 FL (9.6-12.0); Monocytes % 4.3 % (1.7-12.7); NRBC # 0.03 10*3/uL; Neutrophils % 89.6 % (38.7-73.9); Platelet Count 155 T/CUMM (130-400); Red Cell Distribution Width 17.4 % (9.3-17.3); White Blood Count 8.4 T/CUMM (4-12)
[2018-09-10 04:53] LABS: Calcium 8.9 MG/DL (8.5-10.1); Osmolality,Calculated 285.2 MOS/KG (273-304)
[2018-09-10] MEDS: LEVOTHYROXINE 175 MCG TABLET PO SCH (06:35)
[2018-09-10] MEDS: INSULIN REGULAR 100 UNIT/ML SUBCUT SCH ×4 (08:28→21:01)
[2018-09-10] MEDS: PANTOPRAZOLE 40 MG TABLET PO SCH (08:28)
[2018-09-10] MEDS: FUROSEMIDE 40 MG/4 ML VIAL IV SCH (08:28)
[2018-09-10] MEDS: MONTELUKAST 10 MG TABLET PO SCH (08:28)
[2018-09-10] MEDS: OXYBUTYNIN 5 MG TABLET PO SCH ×2 (08:29→21:00)
[2018-09-10] MEDS: CLOTRIMAZOLE 1% CREAM 15 GM TUBE TOP SCH ×2 (08:29→21:03)
[2018-09-10] MEDS: METOPROLOL TARTRATE 50 MG TABLET PO SCH ×2 (08:29→21:00)
[2018-09-10] MEDS: ALLOPURINOL 100 MG TABLET PO SCH (08:29)
[2018-09-10] MEDS: GABAPENTIN 100 MG CAPSULE PO SCH (08:29)
[2018-09-10] MEDS: APIXABAN 5 MG TABLET PO SCH ×2 (08:29→21:00)
[2018-09-10] MEDS: BUDESONIDE/FORMOTEROL 160-4.5 INHALER 6 GM INH SCH ×2 (08:32→21:03)
[2018-09-10] MEDS ORDERED: PNEUMOCOCCAL VACCINE (13 VALENT) 0.5 ML SYRINGE IM ONE (10:30)
[2018-09-10] MEDS: predniSONE 20 MG TABLET PO SCH (10:43)
[2018-09-10] MEDS: FAMOTIDINE 20 MG TABLET PO SCH ×2 (10:43→21:00)
[2018-09-10] MEDS: THEOPHYLLINE ER 300 MG TABLET PO SCH ×2 (10:43→21:00)
[2018-09-11] MEDS: ALBUTEROL/IPRATROPIUM 3 ML NEB RESP TX SCH ×5 (00:10→19:13)
[2018-09-11] MEDS: LEVOTHYROXINE 175 MCG TABLET PO SCH (05:47)
[2018-09-11 05:57] LABS: Basophils % 0.1 % (0.0-0.8); Hematocrit 43.6 VOL% (35.7-47.0); Immature Granulocytes % 0.5 %; Immature Granulocytes Absolute 0.04 #; Lymphocytes # 0.6 10*3/uL (1.4-4.0); Lymphocytes % 8.1 % (21.3-54.2); Mean Corpuscular HGB Conc 32.1 GM/DL (32-36); Mean Corpuscular Volume 97.8 FL (87-102); Mean Platelet Volume 11.1 FL (9.6-12.0); Monocytes % 8.2 % (1.7-12.7); NRBC # 0.05 10*3/uL; Neutrophils % 83.1 % (38.7-73.9); Platelet Count 153 T/CUMM (130-400); Red Blood Count 4.46 MC/CUMM (3.8-5.5); Red Cell Distribution Width 17.1 % (9.3-17.3); White Blood Count 7.4 T/CUMM (4-12)
[2018-09-11 07:08] LABS: Calcium 8.4 MG/DL (8.5-10.1); Osmolality,Calculated 277.7 MOS/KG (273-304)
[2018-09-11] MEDS: INSULIN REGULAR 100 UNIT/ML SUBCUT SCH ×4 (08:32→20:41)
[2018-09-11] MEDS: OXYBUTYNIN 5 MG TABLET PO SCH ×2 (08:33→20:42)
[2018-09-11] MEDS: FAMOTIDINE 20 MG TABLET PO SCH ×2 (08:33→20:42)
[2018-09-11] MEDS: MONTELUKAST 10 MG TABLET PO SCH (08:33)
[2018-09-11] MEDS: THEOPHYLLINE ER 300 MG TABLET PO SCH ×2 (08:33→20:42)
[2018-09-11] MEDS: ALLOPURINOL 100 MG TABLET PO SCH (08:33)
[2018-09-11] MEDS: METOPROLOL TARTRATE 50 MG TABLET PO SCH ×2 (08:34→20:42)
[2018-09-11] MEDS: GABAPENTIN 100 MG CAPSULE PO SCH (08:34)
[2018-09-11] MEDS: CLOTRIMAZOLE 1% CREAM 15 GM TUBE TOP SCH ×2 (08:34→20:46)
[2018-09-11] MEDS: APIXABAN 5 MG TABLET PO SCH ×2 (08:34→20:42)
[2018-09-11] MEDS: predniSONE 20 MG TABLET PO SCH (08:34)
[2018-09-11] MEDS: BUDESONIDE/FORMOTEROL 160-4.5 INHALER 6 GM INH SCH ×2 (08:35→23:13)
[2018-09-11] MEDS ORDERED: SODIUM CHLORIDE 0.9% 1,000 ML IV SCH (10:00)
[2018-09-11] MEDS ORDERED: amLODIPine 5 MG TABLET PO ONE (14:37)
[2018-09-12] MEDS: ALBUTEROL/IPRATROPIUM 3 ML NEB RESP TX SCH ×2 (00:45→07:05)
[2018-09-12] MEDS: LEVOTHYROXINE 175 MCG TABLET PO SCH (06:02)
[2018-09-12 07:26] LABS: Calcium 9.1 MG/DL (8.5-10.1); Osmolality,Calculated 286.2 MOS/KG (273-304)
[2018-09-12] MEDS: INSULIN REGULAR 100 UNIT/ML SUBCUT SCH (07:40)
[2018-09-12 07:51] VITALS: BP 149/87
[2018-09-12] MEDS: predniSONE 20 MG TABLET PO SCH (08:32)
[2018-09-12] MEDS: ALLOPURINOL 100 MG TABLET PO SCH (08:32)
[2018-09-12] MEDS: OXYBUTYNIN 5 MG TABLET PO SCH (08:32)
[2018-09-12] MEDS: CLOTRIMAZOLE 1% CREAM 15 GM TUBE TOP SCH (08:33)
[2018-09-12] MEDS: THEOPHYLLINE ER 300 MG TABLET PO SCH (08:33)
[2018-09-12] MEDS: MONTELUKAST 10 MG TABLET PO SCH (08:33)
[2018-09-12] MEDS: METOPROLOL TARTRATE 50 MG TABLET PO SCH (08:33)
[2018-09-12] MEDS: GABAPENTIN 100 MG CAPSULE PO SCH (08:33)
[2018-09-12] MEDS: FAMOTIDINE 20 MG TABLET PO SCH (08:33)
[2018-09-12] MEDS: APIXABAN 5 MG TABLET PO SCH (08:33)
[2018-09-12] MEDS: BUDESONIDE/FORMOTEROL 160-4.5 INHALER 6 GM INH SCH (08:34)
[2018-09-12] MEDS ORDERED: amLODIPine 5 MG TABLET PO SCH (09:00)
== END 2018-09-12 11:22 | disposition home health service (06) | DRG 291 ==
LOC: N.ED 23:28 → SUATTDRO 09-08 07:46 → N.EDINP 09-08 07:46 → N.ICU 09-08 08:12 → N.4E 09-10 10:08
PROVIDERS: ADMIT Internal Medicine; ATTEND Family Medicine

== ENCOUNTER 2019-01-06 15:40 | Inpatient (IN) ==
[2019-01-06 16:30] LABS: Basophils # 0.1 10*3/uL (0.0-0.2); Eosinophils # 0.1 10*3/uL (0.0-0.87); Eosinophils % 2.5 % (0.00-10.9); Hematocrit 39.9 VOL% (35.7-47.0); Hemoglobin 12.3 GM/DL (12.0-16.0); Immature Granulocytes % 0.6 %; Immature Granulocytes Absolute 0.03 #; Lymphocytes # 1.1 10*3/uL (1.4-4.0); Lymphocytes % 22.5 % (21.3-54.2); Mean Corpuscular HGB Conc 30.8 GM/DL (32-36); Mean Corpuscular Volume 99.3 FL (87-102); Mean Platelet Volume 10.8 FL (9.6-12.0); Neutrophils % 58.4 % (38.7-73.9); Platelet Count 137 T/CUMM (130-400); Red Blood Count 4.02 MC/CUMM (3.8-5.5); Red Cell Distribution Width 16.2 % (9.3-17.3); White Blood Count 4.9 T/CUMM (4-12)
[2019-01-06] MEDS ORDERED: FUROSEMIDE 100 MG/10 ML VIAL IV STA ×2 (16:38→17:39)
[2019-01-06] MEDS ORDERED: FUROSEMIDE 40 MG/4 ML VIAL ONE (16:41)
[2019-01-06 16:43] LABS: INR 1.4; PT Patient Result 14.8 SECS (9.6-12.2); Partial Thromboplastin Time 26.4 SECS (20.8-36.0)
[2019-01-06 16:56] LABS: Alanine Aminotransferase 15 U/L (13-56); Albumin 3.4 G/DL (3.4-5.0); Alkaline Phosphatase 239 U/L (45-117); Aspartate Amino Transferase 31 U/L (0-37); Blood Urea Nitrogen 17 MG/DL (7-18); Calcium 9.4 MG/DL (8.5-10.1); Glucose 110 MG/DL (74-106); Total Protein 8.8 G/DL (6.4-8.3)
[2019-01-06] MEDS ORDERED: DOCUSATE SODIUM 100 MG CAPSULE PO PRN (18:51)
[2019-01-06] MEDS ORDERED: ONDANSETRON 4 MG/2 ML VIAL IV PRN (18:51)
[2019-01-06] MEDS ORDERED: LACTULOSE 20 GM/30 ML UDCUP PO PRN (18:51)
[2019-01-06] MEDS ORDERED: FLUTICASONE 50 MCG NASAL SPRAY 16 GM BOTTLE BOTH NARES PRN (18:55)
[2019-01-06] MEDS ORDERED: POTASSIUM CHLORIDE 20 MEQ TABLET PO PRN (18:58)
[2019-01-06] MEDS ORDERED: GLUCAGON 1 MG VIAL IM PRN (18:59)
[2019-01-06] MEDS ORDERED: DEXTROSE 50% 25 GM/50 ML VIAL IV PRN (18:59)
[2019-01-06] MEDS ORDERED: ENOXAPARIN 40 MG/0.4 ML SYRINGE SUBCUT SCH (20:00)
[2019-01-06] MEDS: INSULIN REGULAR 100 UNIT/ML SUBCUT SCH (21:55)
[2019-01-06] MEDS: BUDESONIDE/FORMOTEROL 160-4.5 INHALER 6 GM INH SCH (22:04)
[2019-01-06] MEDS: FUROSEMIDE 40 MG/4 ML VIAL IV SCH (22:05)
[2019-01-06] MEDS: GABAPENTIN 600 MG TABLET PO SCH (22:05)
[2019-01-06] MEDS: THEOPHYLLINE ER 300 MG TABLET PO SCH (22:05)
[2019-01-06] MEDS: METOPROLOL TARTRATE 50 MG TABLET PO SCH (22:05)
[2019-01-07 04:55] LABS: Basophils % 0.7 % (0.0-0.8); Eosinophils # 0.1 10*3/uL (0.0-0.87); Eosinophils % 2.9 % (0.00-10.9); Hematocrit 36.8 VOL% (35.7-47.0); Hemoglobin 11.3 GM/DL (12.0-16.0); Immature Granulocytes % 0.2 %; Immature Granulocytes Absolute 0.01 #; Lymphocytes # 0.8 10*3/uL (1.4-4.0); Lymphocytes % 18.5 % (21.3-54.2); Mean Corpuscular HGB Conc 30.7 GM/DL (32-36); Mean Corpuscular Volume 98.7 FL (87-102); Mean Platelet Volume 11.1 FL (9.6-12.0); Monocytes % 18.3 % (1.7-12.7); NRBC # 0.02 10*3/uL; Neutrophils % 59.4 % (38.7-73.9); Platelet Count 129 T/CUMM (130-400); Red Blood Count 3.73 MC/CUMM (3.8-5.5); Red Cell Distribution Width 16.3 % (9.3-17.3); White Blood Count 4.4 T/CUMM (4-12)
[2019-01-07] MEDS: LEVOTHYROXINE 125 MCG TABLET PO SCH (06:07)
[2019-01-07 06:21] LABS: Band Neutrophils 1 % (0-10); Lymphocytes 20 % (20-55); Segmented Neutrophils 62 % (50-85); Total Cells Counted 100
[2019-01-07 06:22] LABS: Stomatocytes Slight; Target Cells 1+
[2019-01-07 06:23] LABS: Platelet Estimate Adequate
[2019-01-07 06:47] LABS: Calcium 8.9 MG/DL (8.5-10.1); Osmolality,Calculated 284.1 MOS/KG (273-304)
[2019-01-07] MEDS: INSULIN REGULAR 100 UNIT/ML SUBCUT SCH ×4 (09:17→21:52)
[2019-01-07] MEDS: OXYBUTYNIN XL 5 MG TABLET PO SCH (09:26)
[2019-01-07] MEDS: ALLOPURINOL 100 MG TABLET PO SCH (09:27)
[2019-01-07] MEDS: METOPROLOL TARTRATE 50 MG TABLET PO SCH ×2 (09:28→21:52)
[2019-01-07] MEDS: CETIRIZINE 10 MG TABLET PO SCH (09:28)
[2019-01-07] MEDS: ASPIRIN EC 81 MG TABLET PO SCH (09:28)
[2019-01-07] MEDS: glyBURIDE 2.5 MG TABLET PO SCH ×2 (09:28→17:16)
[2019-01-07] MEDS: amLODIPine 5 MG TABLET PO SCH (09:29)
[2019-01-07] MEDS: PANTOPRAZOLE 40 MG TABLET PO SCH (09:29)
[2019-01-07] MEDS: THEOPHYLLINE ER 300 MG TABLET PO SCH ×2 (09:29→21:52)
[2019-01-07] MEDS: FUROSEMIDE 40 MG/4 ML VIAL IV SCH ×2 (09:32→16:47)
[2019-01-07] MEDS: BUDESONIDE/FORMOTEROL 160-4.5 INHALER 6 GM INH SCH ×2 (09:33→21:53)
[2019-01-07] MEDS: ACETAMINOPHEN 325 MG TABLET PO PRN (16:43)
[2019-01-07] MEDS ORDERED: ALBUTEROL 2.5 MG/3 ML NEB RESP TX PRN (17:22)
[2019-01-07] MEDS: FAMOTIDINE 20 MG TABLET PO SCH (21:52)
[2019-01-07] MEDS: APIXABAN 5 MG TABLET PO SCH (21:52)
[2019-01-07] MEDS: GABAPENTIN 600 MG TABLET PO SCH (21:52)
[2019-01-08 04:32] LABS: Basophils % 0.8 % (0.0-0.8); Eosinophils # 0.1 10*3/uL (0.0-0.87); Hemoglobin 11.9 GM/DL (12.0-16.0); Immature Granulocytes % 0.3 %; Immature Granulocytes Absolute 0.01 #; Lymphocytes # 0.8 10*3/uL (1.4-4.0); Mean Corpuscular HGB Conc 30.5 GM/DL (32-36); Mean Corpuscular Volume 98.7 FL (87-102); Mean Platelet Volume 11.1 FL (9.6-12.0); Monocytes % 18.7 % (1.7-12.7); Neutrophils % 56.2 % (38.7-73.9); Platelet Count 128 T/CUMM (130-400); Red Blood Count 3.95 MC/CUMM (3.8-5.5); Red Cell Distribution Width 16.4 % (9.3-17.3)
[2019-01-08 05:01] LABS: Calcium 9.1 MG/DL (8.5-10.1); Eosinophils 6 % (0-10); Hypochromasia 1+; Lymphocytes 23 % (20-55); Nucleated Red Blood Cells 1 (0-5); Segmented Neutrophils 56 % (50-85); Total Cells Counted 100
[2019-01-08 05:02] LABS: Platelet Estimate Normal
[2019-01-08] MEDS: LEVOTHYROXINE 125 MCG TABLET PO SCH (06:06)
[2019-01-08] MEDS: INSULIN REGULAR 100 UNIT/ML SUBCUT SCH ×4 (08:17→20:32)
[2019-01-08] MEDS: glyBURIDE 2.5 MG TABLET PO SCH (09:03)
[2019-01-08] MEDS: FUROSEMIDE 40 MG/4 ML VIAL IV SCH ×2 (09:54→16:57)
[2019-01-08] MEDS: ALLOPURINOL 100 MG TABLET PO SCH (09:56)
[2019-01-08] MEDS: amLODIPine 5 MG TABLET PO SCH (09:56)
[2019-01-08] MEDS: predniSONE 20 MG TABLET PO SCH (09:56)
[2019-01-08] MEDS: CETIRIZINE 10 MG TABLET PO SCH (09:56)
[2019-01-08] MEDS: FAMOTIDINE 20 MG TABLET PO SCH ×2 (09:56→22:31)
[2019-01-08] MEDS: METOPROLOL TARTRATE 50 MG TABLET PO SCH ×2 (09:56→22:32)
[2019-01-08] MEDS: PANTOPRAZOLE 40 MG TABLET PO SCH (09:56)
[2019-01-08] MEDS: ASPIRIN EC 81 MG TABLET PO SCH (09:56)
[2019-01-08] MEDS: APIXABAN 5 MG TABLET PO SCH ×2 (09:56→22:32)
[2019-01-08] MEDS: BUDESONIDE/FORMOTEROL 160-4.5 INHALER 6 GM INH SCH ×2 (09:57→22:39)
[2019-01-08] MEDS: THEOPHYLLINE ER 300 MG TABLET PO SCH ×2 (09:58→22:32)
[2019-01-08] MEDS: OXYBUTYNIN XL 5 MG TABLET PO SCH (10:02)
[2019-01-08] MEDS: DEXTROSE 5% 1,000 ML IV SCH ×2 (10:03→12:04)
[2019-01-08] MEDS: GABAPENTIN 600 MG TABLET PO SCH (22:31)
[2019-01-08] MEDS: guaiFENesin/DM ER 600-30 MG TABLET PO PRN (22:32)
[2019-01-09 05:23] LABS: Basophils % 0.2 % (0.0-0.8); Hematocrit 38.4 VOL% (35.7-47.0); Hemoglobin 11.6 GM/DL (12.0-16.0); Immature Granulocytes % 0.4 %; Immature Granulocytes Absolute 0.02 #; Lymphocytes # 0.4 10*3/uL (1.4-4.0); Lymphocytes % 8.1 % (21.3-54.2); Mean Corpuscular HGB Conc 30.2 GM/DL (32-36); Mean Corpuscular Volume 100.3 FL (87-102); Mean Platelet Volume 11.1 FL (9.6-12.0); Monocytes % 5.7 % (1.7-12.7); Neutrophils % 85.6 % (38.7-73.9); Platelet Count 136 T/CUMM (130-400); Red Blood Count 3.83 MC/CUMM (3.8-5.5); Red Cell Distribution Width 16.4 % (9.3-17.3); White Blood Count 4.6 T/CUMM (4-12)
[2019-01-09 05:48] LABS: Calcium 9.3 MG/DL (8.5-10.1); Osmolality,Calculated 284.5 MOS/KG (273-304)
[2019-01-09] MEDS: LEVOTHYROXINE 125 MCG TABLET PO SCH (06:05)
[2019-01-09] MEDS: THEOPHYLLINE ER 300 MG TABLET PO SCH ×2 (08:02→21:14)
[2019-01-09] MEDS: amLODIPine 2.5 MG TABLET PO SCH (08:03)
[2019-01-09] MEDS: ASPIRIN EC 81 MG TABLET PO SCH (08:03)
[2019-01-09] MEDS: CETIRIZINE 10 MG TABLET PO SCH (08:03)
[2019-01-09] MEDS: predniSONE 20 MG TABLET PO SCH (08:04)
[2019-01-09] MEDS: OXYBUTYNIN XL 5 MG TABLET PO SCH (08:04)
[2019-01-09] MEDS: FAMOTIDINE 20 MG TABLET PO SCH ×2 (08:04→21:16)
[2019-01-09] MEDS: ALLOPURINOL 100 MG TABLET PO SCH (08:05)
[2019-01-09] MEDS: PANTOPRAZOLE 40 MG TABLET PO SCH (08:05)
[2019-01-09] MEDS: METOPROLOL TARTRATE 50 MG TABLET PO SCH ×2 (08:05→21:17)
[2019-01-09] MEDS: INSULIN REGULAR 100 UNIT/ML SUBCUT SCH ×4 (08:05→21:16)
[2019-01-09] MEDS: APIXABAN 5 MG TABLET PO SCH ×2 (08:06→21:15)
[2019-01-09] MEDS: FUROSEMIDE 40 MG/4 ML VIAL IV SCH (08:06)
[2019-01-09] MEDS: BUDESONIDE/FORMOTEROL 160-4.5 INHALER 6 GM INH SCH ×2 (08:33→21:21)
[2019-01-09] MEDS: DEXTROSE 5% 1,000 ML IV SCH (09:00)
[2019-01-09] MEDS: FUROSEMIDE 40 MG TABLET PO SCH (16:01)
[2019-01-09] MEDS: POLYETHYLENE GLYCOL POWDER 17 GM PACK PO SCH (21:14)
[2019-01-09] MEDS: GABAPENTIN 600 MG TABLET PO SCH (21:15)
[2019-01-09] MEDS: DOCUSATE SODIUM 100 MG CAPSULE PO SCH (21:16)
[2019-01-09] MEDS: SENNA 8.6 MG TABLET PO SCH (21:17)
[2019-01-10 04:42] LABS: Basophils % 0.2 % (0.0-0.8); Hematocrit 37.2 VOL% (35.7-47.0); Hemoglobin 11.5 GM/DL (12.0-16.0); Immature Granulocytes % 0.2 %; Immature Granulocytes Absolute 0.01 #; Lymphocytes # 0.4 10*3/uL (1.4-4.0); Lymphocytes % 6.8 % (21.3-54.2); Mean Corpuscular HGB Conc 30.9 GM/DL (32-36); Mean Corpuscular Volume 99.7 FL (87-102); Mean Platelet Volume 11.1 FL (9.6-12.0); Monocytes % 10.2 % (1.7-12.7); Neutrophils % 82.6 % (38.7-73.9); Platelet Count 140 T/CUMM (130-400); Red Blood Count 3.73 MC/CUMM (3.8-5.5); Red Cell Distribution Width 16.5 % (9.3-17.3); White Blood Count 5.3 T/CUMM (4-12)
[2019-01-10 05:10] LABS: Calcium 9.3 MG/DL (8.5-10.1); Osmolality,Calculated 282.5 MOS/KG (273-304)
[2019-01-10] MEDS: LEVOTHYROXINE 125 MCG TABLET PO SCH (06:02)
[2019-01-10] MEDS: INSULIN REGULAR 100 UNIT/ML SUBCUT SCH ×4 (07:58→22:36)
[2019-01-10] MEDS: THEOPHYLLINE ER 300 MG TABLET PO SCH ×2 (08:58→21:09)
[2019-01-10] MEDS: CETIRIZINE 10 MG TABLET PO SCH (08:58)
[2019-01-10] MEDS: PANTOPRAZOLE 40 MG TABLET PO SCH (08:58)
[2019-01-10] MEDS: DOCUSATE SODIUM 100 MG CAPSULE PO SCH ×2 (08:58→21:10)
[2019-01-10] MEDS: ASPIRIN EC 81 MG TABLET PO SCH (08:59)
[2019-01-10] MEDS: METOPROLOL TARTRATE 50 MG TABLET PO SCH ×2 (08:59→21:10)
[2019-01-10] MEDS: OXYBUTYNIN XL 5 MG TABLET PO SCH (08:59)
[2019-01-10] MEDS: amLODIPine 2.5 MG TABLET PO SCH (08:59)
[2019-01-10] MEDS: FUROSEMIDE 40 MG TABLET PO SCH (08:59)
[2019-01-10] MEDS: FAMOTIDINE 20 MG TABLET PO SCH ×2 (08:59→21:10)
[2019-01-10] MEDS: ALLOPURINOL 100 MG TABLET PO SCH (08:59)
[2019-01-10] MEDS: POLYETHYLENE GLYCOL POWDER 17 GM PACK PO SCH ×2 (09:00→21:11)
[2019-01-10] MEDS: BUDESONIDE/FORMOTEROL 160-4.5 INHALER 6 GM INH SCH ×2 (09:00→22:37)
[2019-01-10] MEDS: APIXABAN 5 MG TABLET PO SCH ×2 (09:07→21:11)
[2019-01-10] MEDS: predniSONE 20 MG TABLET PO SCH (09:07)
[2019-01-10] MEDS: DEXTROSE 5% 1,000 ML IV SCH (09:07)
[2019-01-10] MEDS: cefTRIAXone 2,000 MG in SYRINGE 1 EACH IV SCH (14:35)
[2019-01-10] MEDS: SENNA 8.6 MG TABLET PO SCH (21:10)
[2019-01-10] MEDS: hydrALAZINE 10 MG TABLET PO SCH (21:10)
[2019-01-10] MEDS: GABAPENTIN 600 MG TABLET PO SCH (21:10)
[2019-01-10] MEDS: AZITHROMYCIN INJ 500 MG in SODIUM CHLORIDE 0.9% 250 ML IV SCH (21:26)
[2019-01-10] MEDS ORDERED: MORPHINE 4 MG/1 ML VIAL IV ONE (22:50)
[2019-01-10] MEDS ORDERED: MORPHINE 4 MG/1 ML VIAL ONE (22:53)
[2019-01-11] MEDS: LEVOTHYROXINE 125 MCG TABLET PO SCH (05:29)
[2019-01-11 06:16] LABS: Basophils % 0.1 % (0.0-0.8); Hematocrit 40.9 VOL% (35.7-47.0); Hemoglobin 12.5 GM/DL (12.0-16.0); Immature Granulocytes % 0.6 %; Immature Granulocytes Absolute 0.04 #; Lymphocytes # 0.6 10*3/uL (1.4-4.0); Lymphocytes % 7.9 % (21.3-54.2); Mean Corpuscular HGB Conc 30.6 GM/DL (32-36); Mean Corpuscular Volume 99.3 FL (87-102); Mean Platelet Volume 11.2 FL (9.6-12.0); Monocytes % 18.9 % (1.7-12.7); NRBC # 0.02 10*3/uL; Neutrophils % 72.5 % (38.7-73.9); Platelet Count 162 T/CUMM (130-400); Red Blood Count 4.12 MC/CUMM (3.8-5.5); Red Cell Distribution Width 16.6 % (9.3-17.3); White Blood Count 7.1 T/CUMM (4-12)
[2019-01-11 06:39] LABS: Calcium 9.4 MG/DL (8.5-10.1); Osmolality,Calculated 284.5 MOS/KG (273-304)
[2019-01-11 06:48] LABS: Eosinophils 1 % (0-10); Hypochromasia 1+; Lymphocytes 10 % (20-55); Microcytosis 1+; Platelet Estimate Adequate; Segmented Neutrophils 83 % (50-85); Target Cells Few; Total Cells Counted 100
[2019-01-11] MEDS: INSULIN REGULAR 100 UNIT/ML SUBCUT SCH ×4 (08:05→20:44)
[2019-01-11 10:30] LABS: ABG Base Excess 6.3 MMOL/L (-2.5-2.5); ABG PCO2 66.8 MM HG (35-48); ABG PH 7.326 (7.35-7.45); ABG PO2 69.7 MM HG (80-95)
[2019-01-11] MEDS ORDERED: FUROSEMIDE 40 MG/4 ML VIAL IV ONE (10:56)
[2019-01-11] MEDS: METOPROLOL TARTRATE 50 MG TABLET PO SCH ×2 (12:23→20:44)
[2019-01-11 12:31] LABS: Calcium 9.1 MG/DL (8.5-10.1); Osmolality,Calculated 286.4 MOS/KG (273-304)
[2019-01-11] MEDS: ASPIRIN EC 81 MG TABLET PO SCH (13:09)
[2019-01-11] MEDS: APIXABAN 5 MG TABLET PO SCH ×2 (13:13→20:43)
[2019-01-11] MEDS: OXYBUTYNIN XL 5 MG TABLET PO SCH (13:13)
[2019-01-11] MEDS: ISOSORBIDE MONONITRATE 30 MG TABLET PO SCH (13:13)
[2019-01-11] MEDS: FUROSEMIDE 40 MG TABLET PO SCH (13:13)
[2019-01-11] MEDS: DOCUSATE SODIUM 100 MG CAPSULE PO SCH ×2 (13:13→20:43)
[2019-01-11] MEDS: FAMOTIDINE 20 MG TABLET PO SCH ×2 (13:14→20:44)
[2019-01-11] MEDS: THEOPHYLLINE ER 300 MG TABLET PO SCH ×2 (13:14→20:43)
[2019-01-11] MEDS: BUDESONIDE/FORMOTEROL 160-4.5 INHALER 6 GM INH SCH ×2 (13:14→20:46)
[2019-01-11] MEDS: PANTOPRAZOLE 40 MG TABLET PO SCH (13:14)
[2019-01-11] MEDS: ALLOPURINOL 100 MG TABLET PO SCH (13:14)
[2019-01-11] MEDS: predniSONE 20 MG TABLET PO SCH (13:14)
[2019-01-11] MEDS: POLYETHYLENE GLYCOL POWDER 17 GM PACK PO SCH ×2 (13:14→20:44)
[2019-01-11] MEDS: CETIRIZINE 10 MG TABLET PO SCH (13:15)
[2019-01-11] MEDS: DEXTROSE 5% 1,000 ML IV SCH (13:15)
[2019-01-11] MEDS: hydrALAZINE 10 MG TABLET PO SCH (13:20)
[2019-01-11] MEDS: amLODIPine 2.5 MG TABLET PO SCH (13:21)
[2019-01-11] MEDS: cefTRIAXone 2,000 MG in SYRINGE 1 EACH IV SCH (13:40)
[2019-01-11] MEDS: hydrALAZINE 25 MG TABLET PO SCH ×2 (17:12→20:43)
[2019-01-11] MEDS: AZITHROMYCIN INJ 500 MG in SODIUM CHLORIDE 0.9% 250 ML IV SCH (20:41)
[2019-01-11] MEDS: SENNA 8.6 MG TABLET PO SCH (20:45)
[2019-01-12] MEDS: ACETAMINOPHEN 325 MG TABLET PO PRN (05:44)
[2019-01-12 05:46] LABS: Basophils # 0.1 10*3/uL (0.0-0.2); Basophils % 0.8 % (0.0-0.8); Eosinophils # 0.1 10*3/uL (0.0-0.87); Eosinophils % 0.9 % (0.00-10.9); Hematocrit 38.4 VOL% (35.7-47.0); Hemoglobin 12.3 GM/DL (12.0-16.0); Immature Granulocytes % 0.5 %; Immature Granulocytes Absolute 0.03 #; Lymphocytes # 0.7 10*3/uL (1.4-4.0); Lymphocytes % 11.1 % (21.3-54.2); Mean Corpuscular Volume 96.7 FL (87-102); Mean Platelet Volume 10.7 FL (9.6-12.0); Monocytes % 13.6 % (1.7-12.7); Neutrophils % 73.1 % (38.7-73.9); Platelet Count 138 T/CUMM (130-400); Red Blood Count 3.97 MC/CUMM (3.8-5.5); Red Cell Distribution Width 16.3 % (9.3-17.3); White Blood Count 6.4 T/CUMM (4-12)
[2019-01-12] MEDS: LEVOTHYROXINE 125 MCG TABLET PO SCH (05:46)
[2019-01-12 06:06] LABS: Calcium 9.3 MG/DL (8.5-10.1); Osmolality,Calculated 292.1 MOS/KG (273-304)
[2019-01-12] MEDS: INSULIN REGULAR 100 UNIT/ML SUBCUT SCH ×4 (08:31→21:17)
[2019-01-12] MEDS: ASPIRIN EC 81 MG TABLET PO SCH (08:51)
[2019-01-12] MEDS: ALLOPURINOL 100 MG TABLET PO SCH (08:51)
[2019-01-12] MEDS: THEOPHYLLINE ER 300 MG TABLET PO SCH ×2 (08:51→21:13)
[2019-01-12] MEDS: DOCUSATE SODIUM 100 MG CAPSULE PO SCH ×2 (08:51→21:15)
[2019-01-12] MEDS: PANTOPRAZOLE 40 MG TABLET PO SCH (08:52)
[2019-01-12] MEDS: APIXABAN 5 MG TABLET PO SCH (08:52)
[2019-01-12] MEDS: hydrALAZINE 25 MG TABLET PO SCH ×3 (08:52→21:16)
[2019-01-12] MEDS: FUROSEMIDE 40 MG TABLET PO SCH (08:52)
[2019-01-12] MEDS: CETIRIZINE 10 MG TABLET PO SCH (08:52)
[2019-01-12] MEDS: predniSONE 20 MG TABLET PO SCH (08:52)
[2019-01-12] MEDS: ISOSORBIDE MONONITRATE 30 MG TABLET PO SCH (08:52)
[2019-01-12] MEDS: METOPROLOL TARTRATE 50 MG TABLET PO SCH ×2 (08:52→21:15)
[2019-01-12] MEDS: OXYBUTYNIN XL 5 MG TABLET PO SCH (08:52)
[2019-01-12] MEDS: FAMOTIDINE 20 MG TABLET PO SCH ×2 (08:52→21:16)
[2019-01-12] MEDS: POLYETHYLENE GLYCOL POWDER 17 GM PACK PO SCH ×2 (08:53→21:17)
[2019-01-12] MEDS: BUDESONIDE/FORMOTEROL 160-4.5 INHALER 6 GM INH SCH ×2 (09:01→21:32)
[2019-01-12] MEDS: DEXTROSE 5% 1,000 ML IV SCH (09:16)
[2019-01-12] MEDS: cefTRIAXone 2,000 MG in SYRINGE 1 EACH IV SCH (11:21)
[2019-01-12] MEDS: OXYMETAZOLINE 0.05% NASAL SPRAY 15 ML BOTTLE BOTH NARES PRN ×2 (13:00→21:27)
[2019-01-12 17:14] LABS: ABG HCO3 31.6 MMOL/L (20-26); ABG Oxygen Saturation 89.8 % (95-100); ABG PCO2 53.4 MM HG (35-48); ABG PH 7.416 (7.35-7.45); ABG PO2 59.6 MM HG (80-95); ABG TCO2 30.2 MMOL/L (23-27)
[2019-01-12] MEDS: SENNA 8.6 MG TABLET PO SCH (21:14)
[2019-01-12] MEDS: AZITHROMYCIN INJ 500 MG in SODIUM CHLORIDE 0.9% 250 ML IV SCH (21:43)
[2019-01-13 05:42] LABS: Basophils % 0.1 % (0.0-0.8); Eosinophils % 0.1 % (0.00-10.9); Hematocrit 35.3 VOL% (35.7-47.0); Hemoglobin 11.3 GM/DL (12.0-16.0); Immature Granulocytes % 0.4 %; Immature Granulocytes Absolute 0.03 #; Lymphocytes # 0.4 10*3/uL (1.4-4.0); Lymphocytes % 6.1 % (21.3-54.2); Mean Corpuscular Volume 94.9 FL (87-102); Monocytes % 13.1 % (1.7-12.7); Neutrophils % 80.2 % (38.7-73.9); Platelet Count 134 T/CUMM (130-400); Red Blood Count 3.72 MC/CUMM (3.8-5.5); Red Cell Distribution Width 16.1 % (9.3-17.3); White Blood Count 6.7 T/CUMM (4-12)
[2019-01-13 06:03] LABS: Calcium 9.2 MG/DL (8.5-10.1); Osmolality,Calculated 293.1 MOS/KG (273-304)
[2019-01-13] MEDS: LEVOTHYROXINE 125 MCG TABLET PO SCH (06:03)
[2019-01-13] MEDS: ISOSORBIDE MONONITRATE 30 MG TABLET PO SCH (08:52)
[2019-01-13] MEDS: INSULIN REGULAR 100 UNIT/ML SUBCUT SCH ×4 (08:52→22:45)
[2019-01-13] MEDS: predniSONE 20 MG TABLET PO SCH (08:53)
[2019-01-13] MEDS: METOPROLOL TARTRATE 50 MG TABLET PO SCH ×2 (08:53→22:44)
[2019-01-13] MEDS: OXYBUTYNIN XL 5 MG TABLET PO SCH (08:53)
[2019-01-13] MEDS: PANTOPRAZOLE 40 MG TABLET PO SCH (08:53)
[2019-01-13] MEDS: DOCUSATE SODIUM 100 MG CAPSULE PO SCH ×2 (08:53→22:44)
[2019-01-13] MEDS: CETIRIZINE 10 MG TABLET PO SCH (08:54)
[2019-01-13] MEDS: FUROSEMIDE 40 MG TABLET PO SCH (08:54)
[2019-01-13] MEDS: THEOPHYLLINE ER 300 MG TABLET PO SCH ×2 (08:55→22:43)
[2019-01-13] MEDS: ASPIRIN EC 81 MG TABLET PO SCH (08:55)
[2019-01-13] MEDS: hydrALAZINE 25 MG TABLET PO SCH ×3 (08:55→22:45)
[2019-01-13] MEDS: FAMOTIDINE 20 MG TABLET PO SCH ×2 (08:55→22:44)
[2019-01-13] MEDS: ALLOPURINOL 100 MG TABLET PO SCH (08:55)
[2019-01-13] MEDS: POLYETHYLENE GLYCOL POWDER 17 GM PACK PO SCH ×2 (08:56→22:47)
[2019-01-13] MEDS: BUDESONIDE/FORMOTEROL 160-4.5 INHALER 6 GM INH SCH ×2 (09:01→22:46)
[2019-01-13] MEDS: DEXTROSE 5% 1,000 ML IV SCH (11:37)
[2019-01-13] MEDS: cefTRIAXone 2,000 MG in SYRINGE 1 EACH IV SCH (12:04)
[2019-01-13] MEDS: SENNA 8.6 MG TABLET PO SCH (22:44)
[2019-01-13] MEDS: guaiFENesin/DM ER 600-30 MG TABLET PO PRN (22:44)
[2019-01-13] MEDS: APIXABAN 5 MG TABLET PO SCH (22:45)
[2019-01-13] MEDS: AZITHROMYCIN INJ 500 MG in SODIUM CHLORIDE 0.9% 250 ML IV SCH ×2 (22:51→23:55)
[2019-01-14] MEDS: LEVOTHYROXINE 125 MCG TABLET PO SCH (06:46)
[2019-01-14] MEDS: FAMOTIDINE 20 MG TABLET PO SCH ×2 (09:16→21:57)
[2019-01-14] MEDS: DOCUSATE SODIUM 100 MG CAPSULE PO SCH ×2 (09:16→21:56)
[2019-01-14] MEDS: hydrALAZINE 25 MG TABLET PO SCH ×3 (09:17→21:59)
[2019-01-14] MEDS: METOPROLOL TARTRATE 50 MG TABLET PO SCH ×2 (09:17→21:57)
[2019-01-14] MEDS: THEOPHYLLINE ER 300 MG TABLET PO SCH ×2 (09:17→21:58)
[2019-01-14] MEDS: OXYBUTYNIN XL 5 MG TABLET PO SCH (09:17)
[2019-01-14] MEDS: CETIRIZINE 10 MG TABLET PO SCH (09:17)
[2019-01-14] MEDS: APIXABAN 5 MG TABLET PO SCH ×2 (09:17→21:57)
[2019-01-14] MEDS: ASPIRIN EC 81 MG TABLET PO SCH (09:17)
[2019-01-14] MEDS: predniSONE 20 MG TABLET PO SCH (09:18)
[2019-01-14] MEDS: PANTOPRAZOLE 40 MG TABLET PO SCH (09:18)
[2019-01-14] MEDS: FUROSEMIDE 40 MG TABLET PO SCH (09:18)
[2019-01-14] MEDS: ISOSORBIDE MONONITRATE 30 MG TABLET PO SCH (09:18)
[2019-01-14] MEDS: ALLOPURINOL 100 MG TABLET PO SCH (09:18)
[2019-01-14] MEDS: POLYETHYLENE GLYCOL POWDER 17 GM PACK PO SCH ×2 (09:23→21:57)
[2019-01-14] MEDS: INSULIN REGULAR 100 UNIT/ML SUBCUT SCH ×4 (13:18→21:55)
[2019-01-14] MEDS: DEXTROSE 5% 1,000 ML IV SCH (13:22)
[2019-01-14] MEDS: BUDESONIDE/FORMOTEROL 160-4.5 INHALER 6 GM INH SCH ×2 (13:23→21:57)
[2019-01-14] MEDS: cefTRIAXone 2,000 MG in SYRINGE 1 EACH IV SCH (13:26)
[2019-01-14] MEDS: SENNA 8.6 MG TABLET PO SCH (21:56)
[2019-01-14] MEDS: guaiFENesin/DM ER 600-30 MG TABLET PO PRN (21:57)
[2019-01-14] MEDS: MUPIROCIN 2% OINT 22 GM TUBE TOP SCH (22:02)
[2019-01-15 07:18] LABS: Calcium 9.5 MG/DL (8.5-10.1); Osmolality,Calculated 287.3 MOS/KG (273-304)
[2019-01-15] MEDS: hydrALAZINE 25 MG TABLET PO SCH ×3 (10:11→23:10)
[2019-01-15] MEDS: ASPIRIN EC 81 MG TABLET PO SCH (10:12)
[2019-01-15] MEDS: CETIRIZINE 10 MG TABLET PO SCH (10:12)
[2019-01-15] MEDS: APIXABAN 5 MG TABLET PO SCH ×2 (10:12→22:22)
[2019-01-15] MEDS: PANTOPRAZOLE 40 MG TABLET PO SCH (10:13)
[2019-01-15] MEDS: METOPROLOL TARTRATE 50 MG TABLET PO SCH ×2 (10:13→22:27)
[2019-01-15] MEDS: ALLOPURINOL 100 MG TABLET PO SCH (10:13)
[2019-01-15] MEDS: OXYBUTYNIN XL 5 MG TABLET PO SCH (10:13)
[2019-01-15] MEDS: DOCUSATE SODIUM 100 MG CAPSULE PO SCH ×2 (10:13→21:04)
[2019-01-15] MEDS: predniSONE 20 MG TABLET PO SCH (10:13)
[2019-01-15] MEDS: FUROSEMIDE 40 MG TABLET PO SCH (10:14)
[2019-01-15] MEDS: THEOPHYLLINE ER 300 MG TABLET PO SCH ×2 (10:14→22:26)
[2019-01-15] MEDS: ISOSORBIDE MONONITRATE 30 MG TABLET PO SCH (10:15)
[2019-01-15] MEDS: MUPIROCIN 2% OINT 22 GM TUBE TOP SCH ×2 (10:17→22:26)
[2019-01-15] MEDS: INSULIN REGULAR 100 UNIT/ML SUBCUT SCH ×4 (10:28→22:21)
[2019-01-15] MEDS: POLYETHYLENE GLYCOL POWDER 17 GM PACK PO SCH ×2 (10:37→21:04)
[2019-01-15] MEDS: BUDESONIDE/FORMOTEROL 160-4.5 INHALER 6 GM INH SCH ×3 (10:38→22:29)
[2019-01-15] MEDS: FAMOTIDINE 20 MG TABLET PO SCH ×2 (10:44→22:27)
[2019-01-15] MEDS: LEVOTHYROXINE 125 MCG TABLET PO SCH (11:14)
[2019-01-15] MEDS: DEXTROSE 5% 1,000 ML IV SCH (11:51)
[2019-01-15] MEDS: cefTRIAXone 2,000 MG in SYRINGE 1 EACH IV SCH (15:49)
[2019-01-15] MEDS ORDERED: TRANEXAMIC ACID 1,000 MG in SODIUM CHLORIDE 0.9% 100 ML IV ONE (16:00)
[2019-01-15] MEDS: SENNA 8.6 MG TABLET PO SCH (21:04)
[2019-01-15] MEDS: AZITHROMYCIN INJ 500 MG in SODIUM CHLORIDE 0.9% 250 ML IV SCH (22:25)
[2019-01-15] MEDS: FUROSEMIDE 20 MG TABLET PO SCH (22:26)
[2019-01-15] MEDS: TRANEXAMIC ACID 1,000 MG/10 ML VIAL PO SCH (22:28)
[2019-01-16] MEDS: INSULIN REGULAR 100 UNIT/ML SUBCUT SCH ×4 (09:21→22:17)
[2019-01-16] MEDS: THEOPHYLLINE ER 300 MG TABLET PO SCH ×2 (09:22→22:15)
[2019-01-16] MEDS: hydrALAZINE 25 MG TABLET PO SCH ×3 (09:23→22:14)
[2019-01-16] MEDS: ISOSORBIDE MONONITRATE 30 MG TABLET PO SCH (09:23)
[2019-01-16] MEDS: FUROSEMIDE 20 MG TABLET PO SCH ×2 (09:23→22:15)
[2019-01-16] MEDS: predniSONE 20 MG TABLET PO SCH (09:23)
[2019-01-16] MEDS: ASPIRIN EC 81 MG TABLET PO SCH (09:23)
[2019-01-16] MEDS: METOPROLOL TARTRATE 50 MG TABLET PO SCH ×2 (09:24→22:15)
[2019-01-16] MEDS: OXYBUTYNIN XL 5 MG TABLET PO SCH (09:24)
[2019-01-16] MEDS: FAMOTIDINE 20 MG TABLET PO SCH ×2 (09:24→22:16)
[2019-01-16] MEDS: PANTOPRAZOLE 40 MG TABLET PO SCH (09:25)
[2019-01-16] MEDS: ALLOPURINOL 100 MG TABLET PO SCH (09:25)
[2019-01-16] MEDS: CETIRIZINE 10 MG TABLET PO SCH (09:25)
[2019-01-16] MEDS: LEVOTHYROXINE 125 MCG TABLET PO SCH (09:26)
[2019-01-16] MEDS: MUPIROCIN 2% OINT 22 GM TUBE TOP SCH ×2 (09:41→22:24)
[2019-01-16] MEDS: BUDESONIDE/FORMOTEROL 160-4.5 INHALER 6 GM INH SCH ×2 (09:45→22:17)
[2019-01-16] MEDS: DOCUSATE SODIUM 100 MG CAPSULE PO SCH ×2 (11:21→22:15)
[2019-01-16] MEDS: POLYETHYLENE GLYCOL POWDER 17 GM PACK PO SCH ×2 (11:22→22:17)
[2019-01-16] MEDS: APIXABAN 5 MG TABLET PO SCH ×2 (11:22→22:16)
[2019-01-16] MEDS: DEXTROSE 5% 1,000 ML IV SCH (11:24)
[2019-01-16] MEDS: TRANEXAMIC ACID 1,000 MG/10 ML VIAL PO SCH ×2 (11:35→22:18)
[2019-01-16] MEDS: cefTRIAXone 2,000 MG in SYRINGE 1 EACH IV SCH (14:38)
[2019-01-16] MEDS: AZITHROMYCIN INJ 500 MG in SODIUM CHLORIDE 0.9% 250 ML IV SCH (22:10)
[2019-01-16] MEDS: SENNA 8.6 MG TABLET PO SCH (22:16)
[2019-01-17] MEDS: AZITHROMYCIN INJ 500 MG in SODIUM CHLORIDE 0.9% 250 ML IV SCH (03:25)
[2019-01-17] MEDS: cefTRIAXone 2,000 MG in SYRINGE 1 EACH IV SCH (03:45)
[2019-01-17 05:03] LABS: Basophils % 0.2 % (0.0-0.8); Hematocrit 34.4 VOL% (35.7-47.0); Hemoglobin 11.1 GM/DL (12.0-16.0); Immature Granulocytes % 0.4 %; Immature Granulocytes Absolute 0.02 #; Lymphocytes # 0.3 10*3/uL (1.4-4.0); Lymphocytes % 6.4 % (21.3-54.2); Mean Corpuscular HGB Conc 32.3 GM/DL (32-36); Mean Corpuscular Volume 94.8 FL (87-102); Monocytes % 12.3 % (1.7-12.7); NRBC # 0.02 10*3/uL; Neutrophils % 80.7 % (38.7-73.9); Platelet Count 135 T/CUMM (130-400); Red Blood Count 3.63 MC/CUMM (3.8-5.5); Red Cell Distribution Width 15.9 % (9.3-17.3); White Blood Count 4.9 T/CUMM (4-12)
[2019-01-17 05:12] LABS: Calcium 9.1 MG/DL (8.5-10.1); Osmolality,Calculated 288.3 MOS/KG (273-304)
[2019-01-17] MEDS: LEVOTHYROXINE 125 MCG TABLET PO SCH (06:14)
[2019-01-17] MEDS: THEOPHYLLINE ER 300 MG TABLET PO SCH (09:33)
[2019-01-17] MEDS: TRANEXAMIC ACID 1,000 MG/10 ML VIAL PO SCH (09:33)
[2019-01-17] MEDS: ASPIRIN EC 81 MG TABLET PO SCH (09:34)
[2019-01-17] MEDS: ALLOPURINOL 100 MG TABLET PO SCH (09:35)
[2019-01-17] MEDS: hydrALAZINE 25 MG TABLET PO SCH (09:35)
[2019-01-17] MEDS: PANTOPRAZOLE 40 MG TABLET PO SCH (09:35)
[2019-01-17] MEDS: predniSONE 20 MG TABLET PO SCH (09:35)
[2019-01-17] MEDS: FAMOTIDINE 20 MG TABLET PO SCH (09:35)
[2019-01-17] MEDS: CETIRIZINE 10 MG TABLET PO SCH (09:35)
[2019-01-17] MEDS: METOPROLOL TARTRATE 50 MG TABLET PO SCH (09:35)
[2019-01-17] MEDS: OXYBUTYNIN XL 5 MG TABLET PO SCH (09:35)
[2019-01-17] MEDS: APIXABAN 5 MG TABLET PO SCH (09:35)
[2019-01-17] MEDS: FUROSEMIDE 20 MG TABLET PO SCH (09:35)
[2019-01-17] MEDS: DOCUSATE SODIUM 100 MG CAPSULE PO SCH (09:35)
[2019-01-17] MEDS: ISOSORBIDE MONONITRATE 30 MG TABLET PO SCH (09:35)
[2019-01-17] MEDS: BUDESONIDE/FORMOTEROL 160-4.5 INHALER 6 GM INH SCH (09:38)
[2019-01-17] MEDS: INSULIN REGULAR 100 UNIT/ML SUBCUT SCH ×2 (09:38→11:56)
[2019-01-17] MEDS: POLYETHYLENE GLYCOL POWDER 17 GM PACK PO SCH (09:39)
[2019-01-17 11:45] VITALS: BP 138/71
== END 2019-01-17 12:36 | disposition swing bed (61) | DRG 291 ==
LOC: N.ED 15:40 → N.EDINP 18:51 → N.TELEN 19:40 → N.5E 01-08 13:44 → N.TELEN 01-11 11:29
PROVIDERS: ADMIT Hospitalist; ATTEND Hospitalist

== ENCOUNTER 2019-02-24 22:35 | Inpatient (IN) ==
[2019-02-24] MEDS ORDERED: MORPHINE 4 MG/1 ML VIAL IV STA (23:19)
[2019-02-24] MEDS ORDERED: ONDANSETRON 4 MG/2 ML VIAL IV STA (23:19)
[2019-02-24 23:25] LABS: Basophils # 0.1 10*3/uL (0.0-0.2); Basophils % 1.4 % (0.0-0.8); Eosinophils # 0.1 10*3/uL (0.0-0.87); Eosinophils % 1.6 % (0.00-10.9); Hematocrit 33.3 VOL% (35.7-47.0); Hemoglobin 10.6 GM/DL (12.0-16.0); Immature Granulocytes % 0.8 %; Immature Granulocytes Absolute 0.04 #; Lymphocytes # 1.6 10*3/uL (1.4-4.0); Lymphocytes % 30.4 % (21.3-54.2); Mean Corpuscular HGB Conc 31.8 GM/DL (32-36); Mean Corpuscular Volume 90.2 FL (87-102); Mean Platelet Volume 11.7 FL (9.6-12.0); Monocytes % 17.1 % (1.7-12.7); NRBC # 0.04 10*3/uL; Neutrophils % 48.7 % (38.7-73.9); Platelet Count 165 T/CUMM (130-400); Red Blood Count 3.69 MC/CUMM (3.8-5.5); White Blood Count 5.1 T/CUMM (4-12)
[2019-02-24 23:32] LABS: INR 1.4; PT Patient Result 15.4 SECS (9.6-12.2)
[2019-02-24 23:41] LABS: Albumin 3.3 G/DL (3.4-5.0); Calcium 8.3 MG/DL (8.5-10.1); Osmolality,Calculated 281.3 MOS/KG (273-304); Total Protein 7.5 G/DL (6.4-8.3)
[2019-02-24] MEDS ORDERED: FUROSEMIDE 100 MG/10 ML VIAL IV STA (23:50)
[2019-02-24 23:56] LABS: Band Neutrophils 2 % (0-10); Eosinophils 4 % (0-10); Lymphocytes 36 % (20-55); Segmented Neutrophils 40 % (50-85); Total Cells Counted 100
[2019-02-24 23:58] LABS: Hypochromasia 2+; Platelet Estimate Normal; Polychromasia Few; Reactive Lymphocytes Few; Target Cells 1+
[2019-02-25] MEDS ORDERED: FUROSEMIDE 20 MG/2 ML VIAL IV STA (00:15)
[2019-02-25 02:01] LABS: Apearance,Urine Slightly Hazy (Clear); Bilirubin,Urine Small mg/dL (Negative); Blood, Urine Negative (Negative); Glucose,Urine (UA) Negative (Negative); Hyaline Casts,Urine 213 /LPF (0-3); Ketones,Urine Negative (Negative); Mucus,Urine Occasional /LPF (Occasional); Nitrite,Urine Negative (Negative); Protein,Urine 100 MG/DL; RBC,Urine 4 /HPF (0-4); Squamous Epithelial Cell,Urine Occasional /HPF (0-10); Urine Color Amber (Yellow); Urine Specific Gravity 1.019 (1.001-1.035); WBC,Urine 1 /HPF (0-6)
[2019-02-25] MEDS ORDERED: MAGNESIUM SULF RIDER 1 GM in PREMIX 1 EACH IV STA (02:03)
[2019-02-25] MEDS ORDERED: ACETAMINOPHEN 325 MG TABLET PO PRN (02:48)
[2019-02-25] MEDS ORDERED: POTASSIUM CHLORIDE 20 MEQ TABLET PO PRN (02:48)
[2019-02-25] MEDS ORDERED: ONDANSETRON 4 MG/2 ML VIAL IV PRN (02:48)
[2019-02-25] MEDS ORDERED: DEXTROSE 50% 25 GM/50 ML VIAL IV PRN (04:38)
[2019-02-25] MEDS ORDERED: GLUCAGON 1 MG VIAL IM PRN (04:38)
[2019-02-25] MEDS ORDERED: ALBUTEROL/IPRATROPIUM 3 ML NEB RESP TX PRN (04:38)
[2019-02-25] MEDS: INSULIN REGULAR 100 UNIT/ML SUBCUT SCH ×4 (07:30→20:00)
[2019-02-25 07:32] LABS: Basophils # 0.1 10*3/uL (0.0-0.2); Basophils % 1.2 % (0.0-0.8); Eosinophils # 0.1 10*3/uL (0.0-0.87); Eosinophils % 1.4 % (0.00-10.9); Hematocrit 33.3 VOL% (35.7-47.0); Hemoglobin 10.5 GM/DL (12.0-16.0); Immature Granulocytes Absolute 0.05 #; Lymphocytes # 1.5 10*3/uL (1.4-4.0); Lymphocytes % 29.8 % (21.3-54.2); Mean Corpuscular HGB Conc 31.5 GM/DL (32-36); Mean Corpuscular Volume 91.7 FL (87-102); Mean Platelet Volume 11.8 FL (9.6-12.0); Monocytes % 20.1 % (1.7-12.7); NRBC # 0.03 10*3/uL; Neutrophils % 46.5 % (38.7-73.9); Platelet Count 121 T/CUMM (130-400); Red Blood Count 3.63 MC/CUMM (3.8-5.5); Red Cell Distribution Width 18.3 % (9.3-17.3)
[2019-02-25 07:43] LABS: Albumin 2.9 G/DL (3.4-5.0); Bilirubin,Total 1.7 MG/DL (0.2-1.0); Calcium 8.2 MG/DL (8.5-10.1); Total Protein 6.9 G/DL (6.4-8.3)
[2019-02-25] MEDS ORDERED: FUROSEMIDE 40 MG/4 ML VIAL IV SCH ×3 (08:00→16:00)
[2019-02-25] MEDS ORDERED: SPIRONOLACTONE 50 MG TABLET PO SCH (09:00)
[2019-02-25] MEDS ORDERED: LACTULOSE 20 GM/30 ML UDCUP PO SCH (09:00)
[2019-02-25 09:15] LABS: Eosinophils 1 % (0-10); Hypochromasia 1+; Lymphocytes 30 % (20-55); Ovalocytes Slight; Platelet Estimate Decreased; Segmented Neutrophils 52 % (50-85); Total Cells Counted 100
[2019-02-25] MEDS: ASPIRIN EC 81 MG TABLET PO SCH (10:30)
[2019-02-25] MEDS: OXYBUTYNIN XL 5 MG TABLET PO SCH (10:31)
[2019-02-25] MEDS: POTASSIUM CHLORIDE 20 MEQ TABLET PO SCH (10:31)
[2019-02-25] MEDS: ALLOPURINOL 100 MG TABLET PO SCH (10:31)
[2019-02-25] MEDS: PANTOPRAZOLE 40 MG TABLET PO SCH (10:31)
[2019-02-25] MEDS: APIXABAN 5 MG TABLET PO SCH ×2 (10:31→20:11)
[2019-02-25] MEDS: THEOPHYLLINE ER 300 MG TABLET PO SCH ×2 (10:31→20:11)
[2019-02-25 11:22] LABS: Troponin I 0.027 NG/ML (0.00-0.045)
[2019-02-25] MEDS: ALBUTEROL/IPRATROPIUM 3 ML NEB RESP TX SCH ×2 (13:50→20:05)
[2019-02-25] MEDS: LACTULOSE 20 GM/30 ML UDCUP PO SCH ×2 (14:30→20:10)
[2019-02-25 16:31] LABS: % Iron Saturation 11.1 % (18-50)
[2019-02-25] MEDS: FUROSEMIDE 40 MG/4 ML VIAL IV SCH ×2 (16:40→20:11)
[2019-02-25] MEDS ORDERED: DOPamine 800 MG/250 ML PREMIX IV PRN (17:12)
[2019-02-25 18:16] LABS: Hepatitis B Core IgM Quant 0.14 Index; Hepatitis B Surface Ag Quant 0.24 Index; Hepatitis B Surface Ag Result Negative (Negative); Hepatitis C Virus Ab Quant < 0.02 Index; Hepatitis C Virus Ab Result Negative (Negative)
[2019-02-25 18:49] LABS: Apearance,Urine Slightly Hazy (Clear); Blood, Urine Moderate mg/dL (Negative); Glucose,Urine (UA) Negative (Negative); Hyaline Casts,Urine 283 /LPF (0-3); Ketones,Urine Negative (Negative); Mucus,Urine Few /LPF (Occasional); Nitrite,Urine Negative (Negative); Protein,Urine 30 MG/DL; RBC,Urine 10 /HPF (0-4); Squamous Epithelial Cell,Urine Occasional /HPF (0-10); Urine Color Amber (Yellow); Urine Specific Gravity 1.017 (1.001-1.035); WBC,Urine 5 /HPF (0-6)
[2019-02-25 18:50] LABS: Bilirubin,Urine Small mg/dL (Negative)
[2019-02-25 19:25] LABS: Microalbum/Creat Ratio Random 146.8 RATIO (0-30)
[2019-02-25] MEDS: GABAPENTIN 300 MG CAPSULE PO SCH (20:10)
[2019-02-25] MEDS ORDERED: METOPROLOL TARTRATE 25 MG TABLET PO SCH (21:00)
[2019-02-25] MEDS: CEFTAROLINE 400 MG in SODIUM CHLORIDE 0.9% 100 ML IV SCH (21:06)
[2019-02-26] MEDS: ALBUTEROL/IPRATROPIUM 3 ML NEB RESP TX SCH ×4 (01:58→19:35)
[2019-02-26] MEDS ORDERED: NOREPINEPHRINE 4 MG/4 ML VIAL IV ONE ×2 (02:07→07:45)
[2019-02-26 03:59] LABS: Basophils # 0.1 10*3/uL (0.0-0.2); Basophils % 1.2 % (0.0-0.8); Eosinophils # 0.1 10*3/uL (0.0-0.87); Eosinophils % 1.2 % (0.00-10.9); Hematocrit 31.8 VOL% (35.7-47.0); Hemoglobin 10.1 GM/DL (12.0-16.0); Immature Granulocytes % 0.9 %; Immature Granulocytes Absolute 0.05 #; Lymphocytes # 1.5 10*3/uL (1.4-4.0); Lymphocytes % 25.3 % (21.3-54.2); Mean Corpuscular HGB Conc 31.8 GM/DL (32-36); Mean Corpuscular Volume 91.6 FL (87-102); Mean Platelet Volume 11.1 FL (9.6-12.0); Monocytes % 12.9 % (1.7-12.7); NRBC # 0.02 10*3/uL; Neutrophils % 58.5 % (38.7-73.9); Platelet Count 159 T/CUMM (130-400); Red Blood Count 3.47 MC/CUMM (3.8-5.5); Red Cell Distribution Width 18.2 % (9.3-17.3); White Blood Count 5.7 T/CUMM (4-12)
[2019-02-26 04:27] LABS: Albumin 3.2 G/DL (3.4-5.0); Bilirubin,Total 1.8 MG/DL (0.2-1.0); Calcium 8.5 MG/DL (8.5-10.1); Osmolality,Calculated 288.8 MOS/KG (273-304); Total Protein 7.4 G/DL (6.4-8.3)
[2019-02-26] MEDS: LEVOTHYROXINE 125 MCG TABLET PO SCH (05:27)
[2019-02-26] MEDS ORDERED: SUCCINYLCHOLINE 200 MG/10 ML VIAL ONE (07:41)
[2019-02-26] MEDS ORDERED: ETOMIDATE 20 MG/10 ML VIAL IV ONE ×2 (07:41→07:55)
[2019-02-26] MEDS ORDERED: SUCCINYLCHOLINE 200 MG/10 ML VIAL IV ONE (07:56)
[2019-02-26] MEDS: NOREPINEPHRINE 8 MG in SODIUM CHLORIDE 0.9% 242 ML IV PRN ×3 (07:58→22:00)
[2019-02-26] MEDS ORDERED: MIDAZOLAM 10 MG/2 ML VIAL ONE (08:16)
[2019-02-26] MEDS ORDERED: MIDAZOLAM 2 MG/2 ML VIAL IV ONE ×2 (08:17→08:21)
[2019-02-26] MEDS: MIDAZOLAM 100 MG in SODIUM CHLORIDE 0.9% 80 ML IV PRN ×2 (08:23→17:15)
[2019-02-26] MEDS: INSULIN REGULAR 100 UNIT/ML SUBCUT SCH ×4 (10:18→21:34)
[2019-02-26] MEDS: FUROSEMIDE 40 MG/4 ML VIAL IV SCH ×2 (10:29→21:30)
[2019-02-26] MEDS: CEFTAROLINE 400 MG in SODIUM CHLORIDE 0.9% 100 ML IV SCH ×2 (10:30→21:29)
[2019-02-26] MEDS: OXYBUTYNIN XL 5 MG TABLET PO SCH (10:51)
[2019-02-26] MEDS: PANTOPRAZOLE 40 MG TABLET PO SCH (10:51)
[2019-02-26] MEDS: THEOPHYLLINE ER 300 MG TABLET PO SCH (10:51)
[2019-02-26] MEDS: ASPIRIN EC 81 MG TABLET PO SCH (10:52)
[2019-02-26] MEDS: fentaNYL INJ 1,250 MCG in SODIUM CHLORIDE 0.9% 225 ML IV PRN (11:47)
[2019-02-26] MEDS: LACTULOSE 20 GM/30 ML UDCUP PO SCH ×3 (12:37→21:29)
[2019-02-26] MEDS: APIXABAN 5 MG TABLET PO SCH ×2 (12:38→21:30)
[2019-02-26] MEDS: ALLOPURINOL 100 MG TABLET PO SCH (12:38)
[2019-02-26] MEDS: ASPIRIN CHEW 81 MG TABLET PO SCH (12:38)
[2019-02-26] MEDS: POTASSIUM CHLORIDE 20 MEQ TABLET PO SCH (12:39)
[2019-02-26] MEDS: THEOPHYLLINE 5.33 MG/ML 30 ML/BOTTLE PO SCH ×2 (12:39→21:32)
[2019-02-26] MEDS ORDERED: AMIODARONE INJ 150 MG in DEXTROSE 5% 100 ML IV ONE (13:15)
[2019-02-26] MEDS ORDERED: INFLUENZA VIRUS VACCINE 0.5 ML SYRINGE IM ONE (13:19)
[2019-02-26] MEDS ORDERED: MAGNESIUM SULF RIDER 2 GM in PREMIX 1 EACH IV ONE (14:00)
[2019-02-26] MEDS ORDERED: METOPROLOL TARTRATE 5 MG/5 ML VIAL IV SCH (14:00)
[2019-02-26] MEDS ORDERED: AMIODARONE INJ 450 MG in DEXTROSE 5% 241 ML IV SCH (14:00)
[2019-02-26 14:23] LABS: ABG HCO3 30.9 MMOL/L (20-26); ABG PCO2 35.9 MM HG (35-48); ABG TCO2 26.4 MMOL/L (23-27)
[2019-02-26] MEDS: FLUCONAZOLE INJ 200 MG in PREMIX 1 EACH IV SCH (15:43)
[2019-02-26] MEDS: GABAPENTIN 300 MG CAPSULE PO SCH (21:30)
[2019-02-26] MEDS: AMIODARONE INJ 450 MG in DEXTROSE 5% 241 ML IV SCH (21:33)
[2019-02-27] MEDS: fentaNYL INJ 1,250 MCG in SODIUM CHLORIDE 0.9% 225 ML IV PRN ×2 (00:16→05:40)
[2019-02-27] MEDS: ALBUTEROL/IPRATROPIUM 3 ML NEB RESP TX SCH ×5 (01:50→19:21)
[2019-02-27 03:32] LABS: ABG Base Excess 4.8 MMOL/L (-2.5-2.5); ABG HCO3 29.6 MMOL/L (20-26); ABG Oxygen Saturation 97.5 % (95-100); ABG PCO2 44.5 MM HG (35-48); ABG PH 7.441 (7.35-7.45); ABG PO2 98.8 MM HG (80-95)
[2019-02-27 03:38] LABS: Basophils # 0.1 10*3/uL (0.0-0.2); Basophils % 0.9 % (0.0-0.8); Eosinophils # 0.1 10*3/uL (0.0-0.87); Eosinophils % 1.1 % (0.00-10.9); Hematocrit 36.9 VOL% (35.7-47.0); Immature Granulocytes Absolute 0.11 #; Lymphocytes # 2.1 10*3/uL (1.4-4.0); Lymphocytes % 19.4 % (21.3-54.2); Mean Corpuscular HGB Conc 33.1 GM/DL (32-36); Mean Corpuscular Volume 86.8 FL (87-102); Mean Platelet Volume 10.9 FL (9.6-12.0); Monocytes % 12.8 % (1.7-12.7); NRBC # 0.05 10*3/uL; Neutrophils % 64.8 % (38.7-73.9); Platelet Count 232 T/CUMM (130-400); Red Cell Distribution Width 17.8 % (9.3-17.3); White Blood Count 10.7 T/CUMM (4-12)
[2019-02-27 03:41] LABS: Hemoglobin 12.2 GM/DL (12.0-16.0); Red Blood Count 4.25 MC/CUMM (3.8-5.5)
[2019-02-27 03:50] LABS: Calcium 8.5 MG/DL (8.5-10.1); Osmolality,Calculated 288.8 MOS/KG (273-304)
[2019-02-27] MEDS: NOREPINEPHRINE 8 MG in SODIUM CHLORIDE 0.9% 242 ML IV PRN ×3 (04:33→23:18)
[2019-02-27] MEDS: AMIODARONE INJ 450 MG in DEXTROSE 5% 241 ML IV SCH ×3 (05:42→15:13)
[2019-02-27] MEDS: LEVOTHYROXINE 125 MCG TABLET PO SCH (05:42)
[2019-02-27] MEDS: POTASSIUM CHLORIDE RIDER 10 MEQ in PREMIX 1 EACH IV PRN ×5 (05:43→09:40)
[2019-02-27] MEDS ORDERED: AMIODARONE INJ 150 MG in DEXTROSE 5% 100 ML IV ONE ×2 (05:54→20:32)
[2019-02-27] MEDS ORDERED: AMIODARONE 150 MG/3 ML VIAL ONE ×2 (05:55→20:26)
[2019-02-27] MEDS: MIDAZOLAM 100 MG in SODIUM CHLORIDE 0.9% 80 ML IV PRN (06:07)
[2019-02-27] MEDS ORDERED: PHENYLEPHRINE DRIP 40 MG/250 ML PREMIX IV ONE (06:24)
[2019-02-27] MEDS ORDERED: DILTIAZEM 25 MG/5 ML VIAL IV ONE (06:24)
[2019-02-27] MEDS ORDERED: DILTIAZEM 50 MG/10 ML VIAL IV ONE (06:27)
[2019-02-27] MEDS ORDERED: POTASSIUM CHLORIDE 20 MEQ PACK ONE (06:27)
[2019-02-27] MEDS: PHENYLEPHRINE DRIP 40 MG/250 ML PREMIX IV PRN ×4 (06:27→12:48)
[2019-02-27] MEDS ORDERED: MAGNESIUM SULF RIDER 2 GM in PREMIX 1 EACH IV ONE ×2 (06:28→20:45)
[2019-02-27] MEDS ORDERED: AMIODARONE INJ 450 MG in DEXTROSE 5% 241 ML IV SCH (06:30)
[2019-02-27] MEDS ORDERED: dilTIAZem Drip 125 MG/125 ML PREMIX IV SCH (06:30)
[2019-02-27] MEDS ORDERED: POTASSIUM CHLORIDE 20 MEQ PACK PO ONE (06:31)
[2019-02-27] MEDS ORDERED: ADENOSINE 6 MG/2 ML VIAL IV ONE (06:35)
[2019-02-27] MEDS ORDERED: DIGOXIN 0.5 MG/2 ML AMP ONE (07:53)
[2019-02-27] MEDS ORDERED: DIGOXIN 0.5 MG/2 ML AMP IV ONE ×2 (07:55→20:42)
[2019-02-27] MEDS: INSULIN REGULAR 100 UNIT/ML SUBCUT SCH ×4 (08:09→21:33)
[2019-02-27] MEDS: CEFTAROLINE 400 MG in SODIUM CHLORIDE 0.9% 100 ML IV SCH ×2 (08:44→21:57)
[2019-02-27] MEDS: ALLOPURINOL 100 MG TABLET PO SCH (08:45)
[2019-02-27] MEDS: APIXABAN 5 MG TABLET PO SCH ×2 (08:45→21:57)
[2019-02-27] MEDS: POTASSIUM CHLORIDE 20 MEQ TABLET PO SCH (08:45)
[2019-02-27] MEDS: ASPIRIN CHEW 81 MG TABLET PO SCH (08:45)
[2019-02-27] MEDS: OXYBUTYNIN XL 5 MG TABLET PO SCH (08:47)
[2019-02-27] MEDS: THEOPHYLLINE 5.33 MG/ML 30 ML/BOTTLE PO SCH ×2 (08:47→21:58)
[2019-02-27] MEDS: LACTULOSE 20 GM/30 ML UDCUP PO SCH ×3 (08:47→21:57)
[2019-02-27] MEDS: LANSOPRAZOLE ODT 30 MG TABLET PER TUBE SCH (08:47)
[2019-02-27] MEDS: FUROSEMIDE 40 MG/4 ML VIAL IV SCH ×2 (11:34→21:58)
[2019-02-27 15:09] LABS: Calcium 8.1 MG/DL (8.5-10.1); Osmolality,Calculated 285.1 MOS/KG (273-304)
[2019-02-27] MEDS: FLUCONAZOLE INJ 200 MG in PREMIX 1 EACH IV SCH (15:10)
[2019-02-27] MEDS: PHENYLEPHRINE INJ 160 MG in SODIUM CHLORIDE 0.9% 234 ML IV PRN ×2 (17:06→23:52)
[2019-02-27] MEDS ORDERED: SODIUM CHLORIDE 0.9% 500 ML IV ONE (20:43)
[2019-02-27] MEDS ORDERED: POTASSIUM CHLORIDE RIDER 20 MEQ in PREMIX 1 EACH IV ONE (20:45)
[2019-02-27 21:00] LABS: Osmolality,Calculated 285.3 MOS/KG (273-304)
[2019-02-27] MEDS: GABAPENTIN 300 MG CAPSULE PO SCH (22:01)
[2019-02-28] MEDS: ALBUTEROL/IPRATROPIUM 3 ML NEB RESP TX SCH ×4 (01:28→20:10)
[2019-02-28] MEDS: AMIODARONE INJ 450 MG in DEXTROSE 5% 241 ML IV SCH ×3 (02:22→20:47)
[2019-02-28 04:33] LABS: Basophils # 0.1 10*3/uL (0.0-0.2); Basophils % 0.7 % (0.0-0.8); Eosinophils % 0.2 % (0.00-10.9); Hematocrit 37.2 VOL% (35.7-47.0); Hemoglobin 11.9 GM/DL (12.0-16.0); Immature Granulocytes % 0.7 %; Lymphocytes # 1.2 10*3/uL (1.4-4.0); Lymphocytes % 9.1 % (21.3-54.2); Mean Corpuscular Volume 88.4 FL (87-102); Mean Platelet Volume 11.3 FL (9.6-12.0); Monocytes % 8.7 % (1.7-12.7); NRBC # 0.07 10*3/uL; Neutrophils % 80.6 % (38.7-73.9); Platelet Count 217 T/CUMM (130-400); Red Blood Count 4.21 MC/CUMM (3.8-5.5); Red Cell Distribution Width 18.2 % (9.3-17.3); White Blood Count 13.4 T/CUMM (4-12)
[2019-02-28 04:49] LABS: Calcium 8.2 MG/DL (8.5-10.1); Osmolality,Calculated 287.1 MOS/KG (273-304)
[2019-02-28 05:02] LABS: Albumin 2.3 G/DL (3.4-5.0); Bilirubin,Direct 3.02 MG/DL (0.0-0.20); Bilirubin,Indirect 1.8 MG/DL (0.0-1.0); Bilirubin,Total 4.8 MG/DL (0.2-1.0); Total Protein 6.4 G/DL (6.4-8.3)
[2019-02-28] MEDS: LEVOTHYROXINE 125 MCG TABLET PO SCH (05:18)
[2019-02-28] MEDS: NOREPINEPHRINE 8 MG in SODIUM CHLORIDE 0.9% 242 ML IV PRN (08:11)
[2019-02-28] MEDS: PHENYLEPHRINE INJ 160 MG in SODIUM CHLORIDE 0.9% 234 ML IV PRN ×2 (08:12→15:45)
[2019-02-28] MEDS: INSULIN REGULAR 100 UNIT/ML SUBCUT SCH ×4 (08:37→22:17)
[2019-02-28] MEDS: OXYBUTYNIN XL 5 MG TABLET PO SCH (08:38)
[2019-02-28] MEDS: CEFTAROLINE 400 MG in SODIUM CHLORIDE 0.9% 100 ML IV SCH (09:20)
[2019-02-28] MEDS: APIXABAN 5 MG TABLET PO SCH ×2 (09:21→22:10)
[2019-02-28] MEDS: ASPIRIN CHEW 81 MG TABLET PO SCH (09:21)
[2019-02-28] MEDS: THEOPHYLLINE 5.33 MG/ML 30 ML/BOTTLE PO SCH ×2 (09:22→22:10)
[2019-02-28] MEDS: LACTULOSE 20 GM/30 ML UDCUP PO SCH ×3 (09:22→22:10)
[2019-02-28] MEDS: LANSOPRAZOLE ODT 30 MG TABLET PER TUBE SCH (09:22)
[2019-02-28] MEDS: POTASSIUM CHLORIDE 20 MEQ TABLET PO SCH (09:22)
[2019-02-28] MEDS: FUROSEMIDE 40 MG/4 ML VIAL IV SCH ×2 (09:23→22:10)
[2019-02-28] MEDS: ALLOPURINOL 100 MG TABLET PO SCH (09:23)
[2019-02-28] MEDS: NOREPINEPHRINE 16 MG in SODIUM CHLORIDE 0.9% 234 ML IV PRN ×2 (11:31→19:17)
[2019-02-28] MEDS ORDERED: DIGOXIN 0.5 MG/2 ML AMP IV ONE (13:24)
[2019-02-28] MEDS: FLUCONAZOLE INJ 200 MG in PREMIX 1 EACH IV SCH (16:04)
[2019-02-28] MEDS ORDERED: DOBUTamine 500 MG/250 ML PREMIX IV ONE (19:27)
[2019-02-28] MEDS: DOBUTamine 500 MG/250 ML PREMIX IV SCH ×2 (19:47→23:09)
[2019-02-28] MEDS: GABAPENTIN 300 MG CAPSULE PO SCH (22:10)
[2019-02-28] MEDS: CEFTAROLINE 400 MG in SODIUM CHLORIDE 0.9% 50 ML IV SCH (22:11)
[2019-02-28 22:15] LABS: ABG Base Excess -0.1 MMOL/L (-2.5-2.5); ABG HCO3 24.3 MMOL/L (20-26); ABG Oxygen Saturation 98.8 % (95-100); ABG PCO2 54.3 MM HG (35-48); ABG PH 7.304 (7.35-7.45); ABG TCO2 24.8 MMOL/L (23-27)
[2019-03-01] MEDS: ALBUTEROL/IPRATROPIUM 3 ML NEB RESP TX SCH ×2 (01:21→07:02)
[2019-03-01] MEDS: DOBUTamine 500 MG/250 ML PREMIX IV SCH ×7 (02:26→12:25)
[2019-03-01] MEDS: NOREPINEPHRINE 16 MG in SODIUM CHLORIDE 0.9% 234 ML IV PRN ×2 (02:41→08:55)
[2019-03-01] MEDS: PHENYLEPHRINE INJ 160 MG in SODIUM CHLORIDE 0.9% 234 ML IV PRN ×2 (02:42→08:27)
[2019-03-01 03:45] LABS: Basophils % 0.4 % (0.0-0.8); Eosinophils % 0.2 % (0.00-10.9); Hematocrit 27.8 VOL% (35.7-47.0); Hemoglobin 8.9 GM/DL (12.0-16.0); Immature Granulocytes % 0.8 %; Immature Granulocytes Absolute 0.07 #; Lymphocytes # 0.6 10*3/uL (1.4-4.0); Lymphocytes % 6.3 % (21.3-54.2); Mean Corpuscular Volume 89.1 FL (87-102); Monocytes % 7.3 % (1.7-12.7); NRBC # 0.12 10*3/uL; Platelet Count 140 T/CUMM (130-400); Red Blood Count 3.12 MC/CUMM (3.8-5.5); Red Cell Distribution Width 18.1 % (9.3-17.3); White Blood Count 9.1 T/CUMM (4-12)
[2019-03-01 03:48] LABS: Calcium 7.5 MG/DL (8.5-10.1); Osmolality,Calculated 289.1 MOS/KG (273-304)
[2019-03-01 03:51] LABS: Alanine Aminotransferase < 9 U/L (13-56); Albumin 1.6 G/DL (3.4-5.0); Alkaline Phosphatase 190 U/L (45-117); Aspartate Amino Transferase 29 U/L (0-37); Bilirubin,Indirect 1.4 MG/DL (0.0-1.0); Total Protein 4.9 G/DL (6.4-8.3)
[2019-03-01 04:00] LABS: Prealbumin < 3.0 MG/DL (20-40)
[2019-03-01] MEDS: LEVOTHYROXINE 125 MCG TABLET PO SCH (05:26)
[2019-03-01] MEDS ORDERED: EPINEPHrine 1 MG/10 ML SYRINGE ONE ×2 (07:16→13:05)
[2019-03-01] MEDS ORDERED: SODIUM BICARBONATE 50 MEQ/50 ML SYRINGE IV ONE ×2 (07:16→13:05)
[2019-03-01] MEDS ORDERED: SODIUM CHLORIDE 0.9% 2,000 ML IV STA (07:44)
[2019-03-01] MEDS ORDERED: methylPREDNISolone SOD SUC 125 MG/2 ML VIAL IV ONE (07:45)
[2019-03-01] MEDS: INSULIN REGULAR 100 UNIT/ML SUBCUT SCH ×3 (08:09→12:27)
[2019-03-01] MEDS ORDERED: LEVOFLOXACIN INJ 750 MG in PREMIX 1 EACH IV SCH (08:30)
[2019-03-01] MEDS: APIXABAN 5 MG TABLET PO SCH (08:58)
[2019-03-01] MEDS: ALLOPURINOL 100 MG TABLET PO SCH (08:58)
[2019-03-01] MEDS: OXYBUTYNIN XL 5 MG TABLET PO SCH (08:58)
[2019-03-01] MEDS: LANSOPRAZOLE ODT 30 MG TABLET PER TUBE SCH (08:58)
[2019-03-01] MEDS: POTASSIUM CHLORIDE 20 MEQ TABLET PO SCH (08:58)
[2019-03-01] MEDS: ASPIRIN CHEW 81 MG TABLET PO SCH (08:58)
[2019-03-01] MEDS ORDERED: methylPREDNISolone SOD SUC 125 MG/2 ML VIAL IV SCH (09:00)
[2019-03-01] MEDS: THEOPHYLLINE 5.33 MG/ML 30 ML/BOTTLE PO SCH (09:00)
[2019-03-01] MEDS ORDERED: LACTULOSE 20 GM/30 ML UDCUP PO SCH (09:00)
[2019-03-01] MEDS: FUROSEMIDE 40 MG/4 ML VIAL IV SCH (09:01)
[2019-03-01] MEDS: CEFTAROLINE 400 MG in SODIUM CHLORIDE 0.9% 50 ML IV SCH (09:03)
[2019-03-01 14:07] VITALS: BP 32/16
== END 2019-03-01 13:14 | disposition expired | DRG 291 ==
LOC: EDUNIT# → N.ED 22:35 → SUATTDRO 02-25 02:48 → N.EDINP 02-25 02:48 → N.TELEN 02-25 03:07 → N.CC 02-25 17:30
PROVIDERS: ADMIT Hospitalist; ATTEND Family Medicine